=== PATIENT | female | born 1980 ===

== ENCOUNTER 2017-07-16 02:31 | Inpatient (IN) | payer OTHER ==
[~2017-07-16 02:31] MED LIST: Gadodiamide 287 MG/ML VIAL (15ML) IV ONE
[2017-07-16] MEDS ORDERED: Sodium Chloride 0.9% 1,000 ML IV ONE (02:59)
[2017-07-16] MEDS ORDERED: Morphine 4 MG/ML VIAL IV ONE (03:05)
[2017-07-16] MEDS ORDERED: HYDROmorphone 1 mg/ml ISec IVP STA (03:12)
--- NOTE | 2017-07-16 03:14 | C.PDOC ---
History Of Present Illness <Ade Rousseau - Last Filed: 07/16/17 06:22> <Amina Grider - Last Filed: 07/16/17 06:54> 36 year old female is brought to the ED by EMS for evaluation of several episodes of vomiting, abdominal discomfort since yesterday. As per , patient was very weak, fell at home while trying to walk to the bathroom and hit her right shoulder [employer]. Spouse is unsure of syncope or seizure activity at that time and denies observing pt hitting head on dresser. On arrival to the ED , patient was observed having a grand mal seizure, denies any prior history of seizures. Pt just arrived from [place] 1 week ago (Amnia Grider ) <Ade Rousseau - Last Filed: 07/16/17 06:22> History Per: Patient, Family History/Exam Limitations: no limitations Onset/Duration Of Symptoms: Hrs Current Symptoms Are (Timing): Still Present Location Of Pain/Discomfort: Diffuse Radiation Of Pain To:: None Quality Of Discomfort: "Pain" Associated Symptoms: denies: Fever Exacerbating Factors: None Alleviating Factors: None Recent travel outside of the [place]: No Additional History Per: Patient Abnormal Vaginal Bleeding: No <Amina Grider - Last Filed: 07/16/17 06:54> Chief Complaint (Nursing): Abdominal Pain Past Medical History Reviewed: Historical Data, Nursing Documentation, Vital Signs - Medical History PMH: Gastritis Denies: Diabetes, HTN Surgical History: No Surg Hx Family History: States: Unknown Family Hx - Social History Hx Alcohol Use: No Hx Substance Use: No <Amina Grider - Last Filed: 07/16/17 06:54> Vital Signs: Last Vital Signs Temp 97.9 F 07/16/17 06:00 Pulse 106 H 07/16/17 05:40 Resp 20 07/16/17 05:40 BP 112/72 07/16/17 05:40 Pulse Ox 98 07/16/17 06:49 Review Of Systems Constitutional: Negative for: Fever, Chills Cardiovascular: Negative for: Chest Pain Gastrointestinal: Positive for: Abdominal Pain Genitourinary: Negative for: Dysuria Skin: Negative for: Rash Neurological: Negative for: Weakness, Numbness, Headache <CheoAmina - Last Filed: 07/16/17 06:54> Physical Exam - Physical Exam Appears: Non-toxic, Other (Post ictal) Skin: Normal Color, Warm, Dry Head: Atraumatic, Normacephalic Eye(s): bilateral: Normal Inspection, PERRL, EOMI Nose: No Discharge Oral Mucosa: Moist, No Drooling Tongue: Other (Abrasion to the tip ) Lips: Abrasion (lower ) Neck: Normal ROM, No Midline Cervical Tenderness, Supple Chest: Symmetrical Cardiovascular: Rhythm Regular, No Murmur Respiratory: Normal Breath Sounds, No Rales, No Rhonchi, No Wheezing Gastrointestinal/Abdominal: Soft, No Tenderness, No Guarding, No Rebound Extremity: Normal ROM, Tenderness (right anterior shoulder over clavicular area) , Capillary Refill (< 2 seconds), Deformity, No Swelling Extremity: Bilateral: Normal Color And Temperature Pulses: Left Radial: Normal, Right Radial: Normal Neurological/Psych: Oriented x3, Normal Motor, Normal Sensation Gait: Steady <Amina Grider - Last Filed: 07/16/17 06:54> ED Course And Treatment - Laboratory Results Result Diagrams: 07/16/17 03:16 07/16/17 04:40 <Ade Rousseau - Last Filed: 07/16/17 06:22> - Laboratory Results Result Diagrams: 07/16/17 03:16 07/16/17 04:40 ECG: Interpreted By Me, Viewed By Me (and Dr Rousseau) ECG Rhythm: Sinus Tachycardia (nonspecific ST changes, no ectopy) O2 Sat by Pulse Oximetry: 98 (On RA) Pulse Ox Interpretation: Normal - Radiology CXR: Interpreted by Me, Viewed By Me CXR Interpretation: Yes: Infiltrates (right middle lobe) - Other Rad Right Shoulder X-Ray X-Ray: Interpreted by Me, Viewed By Me Interpretation: Anterior dislocation and glenoid fracture - CT Scan/US CT head Other Rad Studies (CT/US): Read By Radiologist, Radiology Report Reviewed CT/US Interpretation: EXAM: CT Head Without Intravenous Contrast. EXAM DATE/ TIME: 07/16/2017 2:59 AM. CLINICAL HISTORY: 36 years old, female; Pain; Other : Seizure. TECHNIQUE: Axial computed tomography images of the head/brain without intravenous contrast. All CT scans at. this facility use one or more dose reduction techniques, viz.: automated exposure control; ma/kV. adjustment per patient size (including targeted exams where dose is matched to indication; i.e. head);. or iterative reconstruction technique. Coronal and sagittal reformatted images were created and reviewed. COMPARISON: No relevant prior studies available. FINDINGS: LIMITATIONS: Mild to moderate streak/motion artifact. BRAIN: No definite acute abnormality identified. No acute hemorrhage seen within the brain. No. acute extra-axial fluid collections visualized. No evidence of significant mass effect within the brain. Normal bernard-white matter differentiation. VENTRICLES: No evidence of significant hydrocephalus. BONES/ JOINTS: No acute fractures or other acute bony abnormality noted. SOFT TISSUES : No acute abnormality of the visualized soft tissues is seen. SINUSES: Visualized paranasal sinuses appear clear.MASTOID AIR CELLS: Mastoid air cells appear clear. IMPRESSION: - No acute findings seen within the brain, allowing for motion artifact. - See above for remaining findings. Thank you for allowing us to participate in the care of your patient. Dictated and Authenticated by: Ashlie Soria MD. 07/16/2017 5:21 AM Eastern Time ([place] & [place]) Progress Note: Plan: - CT head. - EKG. - Labs. - Ativan 2 mg IVP. - Dilaudid 1 mg PO. - Morphine 2 mg IVP. - IV fluids. - Zofran 4 mg IVP. - Right shoulder X-Ray. - UA. Shoulder reduction performed by Dr Rousseau successfully- see procedure note. 05:43 - Dr Rousseau spoke with Dr. Barajas about the case for ICU eval / admission. 06:05 - spoke with Dr. Siu who accepted the patient under his service. Chest/ abd/ pelvis CT IV ordered, IV abx initiated <Amina Grider - Last Filed: 07/16/17 06:54> Medical Decision Making <Ade Rousseau - Last Filed: 07/16/17 06:22> <Amina Grider - Last Filed: 07/16/17 06:54> Medical Decision Making: Performed by Dr. Rousseau Films were reviewed and shown anterior shoulder dislocation and glenoid fracture. With 's consent patient was given 100 mg propofol. Using axial traction shoulder was reduced. Post reduction X-Ray showed good position, no complications during the process conscious sedation, shoulder was placed on immobilizer. (Amina Grider) Disposition - Disposition Disposition Time: 06:25 <Ade Rousseau - Last Filed: 07/16/17 06:22> <Amina Grider - Last Filed: 07/16/17 06:54> - Disposition Disposition: HOSPITALIZED Condition: SERIOUS - Clinical Impression Clinical Impression: Sepsis, Pneumonia, Seizures, Altered mental status, Shoulder dislocation <Ade Rousseau - Last Filed: 07/16/17 06:22> - PA / [employer]ER / Resident Statement MD/DO has reviewed & agrees with the documentation as recorded. - Scribe Statement The provider has reviewed the documentation as recorded by the Scribe <Amina Grider - Last Filed: 07/16/17 06:54> - Scribe Statement Baron Fletcher All medical record entries made by the Scribe were at my direction and personally dictated by me. I have reviewed the chart and agree that the record accurately reflects my personal performance of the history, physical exam, medical decision making, and the department course for this patient. I have also personally directed, reviewed, and agree with the discharge instructions and disposition. (Amina Grider) Proc Sedation INTRA-PROCEDURE <Ade Rousseau - Last Filed: 07/16/17 06:22> <Amina Grider - Last Filed: 07/16/17 06:54> - Medications Medications Given: Azithromycin 500 mg/ Sodium (Chloride) 250 mls @ 250 mls/hr IVPB DAILY TIMA PRN Reason: Protocol Ceftriaxone Sodium 2 gm/ (Sodium Chloride) 100 mls @ 100 mls/hr IVPB DAILY TIMA PRN Reason: Protocol Discontinued Medications Calcium Chloride (Calcium Chloride) 1,000 mg IV ONCE ONE Stop: 07/16/17 04:28 Last Admin: 07/16/17 05:14 Dose: 1,000 mg eMAR Start Stop Document 07/16/17 05:14 SONDRA (Rec: 07/16/17 05:14 SONDRA [id number]) Intravenous Solution Start Date 07/16/17 Start Time 05:13 End Date 07/16/17 End time 05:15 Total Infusion Time 2 Dextrose (Dextrose 50% Inj) 50 ml IVP STAT STA Stop: 07/16/17 04:31 Last Admin: 07/16/17 05:26 Dose: 50 ml IVP Administration Document 07/16/17 05:26 SONDRA (Rec: 07/16/17 05:27 SONDRA [id number]) Charges for Administration # of IVP Administrations 1 Hydromorphone HCl (Dilaudid) 1 mg IVP STAT STA Stop: 07/16/17 03:13 Last Admin: 07/16/17 03:15 Dose: 1 mg MAR Pain Assessment Document 07/16/17 03:15 SONDRA (Rec: 07/16/17 04:34 SONDRA [id number]) Pain Reassessment Is this a pain reassessment? Yes Sleep Is patient sleeping during reassessment? No Presence of Pain Presence of Pain Yes Pain Scale Used Pain Scale Used Numeric Location Left, Right or Bilateral Right Pain Location Body Site Shoulder Description Description Constant Pain Behavior Screaming IVP Administration Document 07/16/17 03:15 SONDRA (Rec: 07/16/17 04:34 SONDRA [id number]) Charges for Administration # of IVP Administrations 1 Sodium Chloride (Sodium Chloride 0.9%) 1,000 mls @ 1,000 mls/hr IV .Q1H ONE Stop: 07/16/17 03:58 Last Admin: 07/16/17 03:03 Dose: 1,000 mls/hr eMAR Start Stop Document 07/16/17 03:03 BAL (Rec: 07/16/17 03:03 BAL [id number]) Intravenous Solution Start Date 07/16/17 Start Time 03:03 End Date 07/16/17 End time 04:03 Total Infusion Time 60 Sodium Chloride (Sodium Chloride 0.9%) 500 mls @ 999 mls/hr IV .Q31M STA Stop: 07/16/17 04:56 Last Admin: 07/16/17 05:13 Dose: 999 mls/hr eMAR Start Stop Document 07/16/17 05:13 SONDRA (Rec: 07/16/17 05:14 SONDRA [id number]) Intravenous Solution Start Date 07/16/17 Start Time 05:13 End Date 07/16/17 End time 05:45 Total Infusion Time 32 Cefoxitin Sodium 2 gm/ Sodium (Chloride) 150 mls @ 150 mls/hr IV STAT STA PRN Reason: Protocol Stop: 07/16/17 06:34 Sodium Chloride (Sodium Chloride 0.9%) 500 mls @ 999 mls/hr IV .Q31M STA Stop: 07/16/17 06:11 Last Admin: 07/16/17 05:49 Dose: 999 mls/hr eMAR Start Stop Document 07/16/17 05:49 SONDRA (Rec: 07/16/17 05:49 SONDRA [id number]) Intravenous Solution Start Date 07/16/17 Start Time 05:49 End Date 07/16/17 End time 06:20 Total Infusion Time 31 Insulin Human Regular (Novolin R) 10 unit IV ONCE ONE Stop: 07/16/17 04:30 Last Admin: 07/16/17 05:24 Dose: 10 unit eMAR Start Stop Document 07/16/17 05:24 SONDRA (Rec: 07/16/17 05:26 SONDRA [id number]) Intravenous Solution Start Date 07/16/17 Start Time 05:10 End Date 07/16/17 End time 05:10 Total Infusion Time 0 Lorazepam (Ativan) 2 mg IVP ONCE ONE Stop: 07/16/17 03:01 Last Admin: 07/16/17 02:50 Dose: 2 mg IVP Administration Document 07/16/17 02:50 BAL (Rec: 07/16/17 03:04 BAL [id number]) Charges for Administration # of IVP Administrations 1 Morphine Sulfate (Morphine) 2 mg IV ONCE ONE Stop: 07/16/17 03:06 Last Admin: 07/16/17 02:55 Dose: 2 mg eMAR Start Stop Document 07/16/17 02:55 SONDRA (Rec: 07/16/17 04:35 SONDRA [id number]) Intravenous Solution Start Date 07/16/17 Start Time 02:55 MAR Pain Assessment Document 07/16/17 02:55 SONDRA (Rec: 07/16/17 04:35 SONDRA [id number]) Pain Reassessment Is this a pain reassessment? No Sleep Is patient sleeping during reassessment? No Presence of Pain Presence of Pain Yes Pain Scale Used Pain Scale Used Numeric Location Left, Right or Bilateral Right Pain Location Body Site Shoulder Description Description Constant Intensity of Pain at present 10 Pain Behavior Screaming Ondansetron HCl (Zofran Inj) 4 mg IVP ONCE ONE Stop: 07/16/17 03:01 Last Admin: 07/16/17 03:04 Dose: 4 mg IVP Administration Document 07/16/17 03:04 BAL (Rec: 07/16/17 03:04 BAL [id number]) Charges for Administration # of IVP Administrations 1 Propofol (Diprivan) 100 mg IVP ONCE ONE Stop: 07/16/17 03:48 Last Admin: 07/16/17 03:47 Dose: 100 mg IVP Administration Document 07/16/17 03:47 SONDRA (Rec: 07/16/17 05:13 SONDRA [id number]) Charges for Administration # of IVP Administrations 2 Sodium Bicarbonate (Sodium Bicarbonate (8.4%) 50 Meq Syringe) 50 meq IVP ONCE ONE Stop: 07/16/17 04:28 Last Admin: 07/16/17 05:23 Dose: 50 meq IVP Administration Document 07/16/17 05:23 SONDRA (Rec: 07/16/17 05:23 SONDRA [id number]) Charges for Administration # of IVP Administrations 1 Proc Sedation PRE-PROCEDURE <Ade Rousseau - Last Filed: 07/16/17 06:22> - Pre-Anesthesia Past Medical History: Medications Reviewed, Allergies Reviewed, Record Review Previous Surgies: Reviewed Family History/Social History: Reviewed - Physical Exam/Review of Systems Vital Signs Reviewed: Yes Cardiovascular: Regular Rate and Rhythm, Normal S1, S2. denies: Murmurs Respiratory/Chest: Clear to Auscultation, Good Air Exchange. denies: Respiratory Distress, Accessory Muscle Use Neurological: GCS=15, CN II-XII Intact, Speech Normal Abdomen: Normal Bowel Sounds. denies: Tenderness, Distention, Peritoneal Signs Mental Status: Alert and Oriented X 3 - Pre-Procedure Airway Assessment History of difficult intubation or surgical airway(i.e trach: No Inability to extend neck:: No Mouth opening less than two finger breadth:: No Diagnosis of sleep apnea:: No Less than three finger breadth to hyoid bone:: No ASA Criteria: 1 - Healthy, normal. 2 - Mild systemic disease (No functional limitations, mildline obesity, DM withot complications, Hypertention). 3 - Severe systemic disease (Some functional limitation, stable angina, morbid obesity, controlled COPD/Asthma/CHF). 4 - Sever systemic disease constant threat to life (Unstable angina, active symptoms of COPD/Asthma, CHF/ Hypertension. 5 - Moribund <Amina Grider - Last Filed: 07/16/17 06:54> - Pre-Anesthesia Chief Complaint: Abdominal Pain Proc Sedation POST-PROCEDURE <Ade Rousseau - Last Filed: 07/16/17 06:22> - Discharge Checklist Written MD order for Discharge: Yes Vital signs assessed and are consistent with pre-procedure r: Yes Ambulates to pre-procedural level: Yes Alert and oriented to pre-procedural level: Yes Responsible adult escort present: Yes DISCHARGE INSTRUCTIONS GIVEN:: Yes <Amina Grider - Last Filed: 07/16/17 06:54> - Post Procedure Physician Note Post Procedure Note: Films were reviewed and shown anterior shoulder dislocation and glenoid fracture. With 's consent patient was given 100 mg propofol. Using axial traction shoulder was reduced. Post reduction X-Ray showed good position, no complications during the process conscious sedation, shoulder was placed on immobilizer. (Amina Grider)
[2017-07-16 03:16] LABS: HCG,QUALITATIVE URINE NEGATIVE (NEGATIVE)
[2017-07-16 03:17] LABS: EOS # 0.1 K/uL (0.0-0.7); HEMOGLOBIN 13.7 g/dL (11.0-16.0)
[2017-07-16 03:19] LABS: BASO # 0.1 K/uL (0.0-0.2); BASO % 0.3 % (0.0-2.0); EOS % 0.3 % (0.0-4.0); LYMPH % 22.5 % (20.0-40.0); MEAN CELL VOLUME 90.5 fL (81.0-99.0); MEAN CORPUSCULAR HEMOGLOBIN 28.9 pg (27.0-31.0); MEAN PLATELET VOLUME 8.9 fL (7.2-11.7); MONO % 4.5 % (0.0-10.0); NEUT % 72.4 % (50.0-75.0); RBC 4.74 Mil/uL (3.80-5.20); WHITE BLOOD COUNT 22.1 K/uL (4.8-10.8)
[2017-07-16 03:20] LABS: GRANULAR CAST 7 /lpf (0-1); URINE BACTERIA RARE (<OCC); URINE BILIRUBIN NEGATIVE (NEGATIVE); URINE BLOOD 2+ (NEGATIVE); URINE CLARITY Clear (Clear); URINE COLOR Straw (YELLOW); URINE GLUCOSE (UA) 1+ mg/dL (Normal); URINE LEUKOCYTE ESTERASE NEG Leu/uL (Negative); URINE PROTEIN 2+ mg/dL (NEGATIVE); URINE UROBILINOGEN NORMAL mg/dL (0.2-1.0)
[2017-07-16 03:37] LABS: BARBITURATES, UR NEGATIVE (NEGATIVE); BENZODIAZEPINES, UR NEGATIVE (NEGATIVE); OPIATES, UR NEGATIVE (NEGATIVE); PHENCYCLIDINE, UR NEGATIVE (NEGATIVE)
[2017-07-16] MEDS ORDERED: Propofol 10 mg/ml Inj (20 ML) ONE (03:45)
[2017-07-16] MEDS ORDERED: Propofol 10 mg/ml Inj (20 ML) IVP ONE (03:47)
[2017-07-16 04:12] LABS: ALB/GLOB RATIO 1.1 (1.0-2.1); ALBUMIN 4.9 g/dL (3.5-5.0); ALT/SGPT 43 U/L (9-52); AST/SGOT 47 U/L (14-36); BLOOD UREA NITROGEN 8 mg/dL (7-17); CALCIUM 10.2 mg/dl (8.6-10.4); GFR AFRICAN-AMERICAN > 60; GFR NON-AFRICAN AMERICAN > 60
[2017-07-16] MEDS ORDERED: Sodium Chloride 0.9% 1,000 ML IV STA ×2 (04:26→05:41)
[2017-07-16] MEDS ORDERED: Calcium Chloride 1000 mg/10 ml Syringe IV ONE (04:27)
[2017-07-16] MEDS ORDERED: Sodium Bicarbonate (8.4%) 50 Meq Syringe IVP ONE (04:27)
[2017-07-16] MEDS ORDERED: (Novolin R) Insulin Human Regular 100 units/ml vial IV ONE (04:29)
[2017-07-16] MEDS ORDERED: Dextrose 50% SYRINGE Inj (50 ml) IVP STA (04:30)
[2017-07-16 05:01] LABS: ABG ALLEN TEST POS; ARTERIAL BLOOD GAS HCO3 14.3 mmol/L (21-28); ARTERIAL BLOOD GAS O2 SAT 99.5 % (95-98); ARTERIAL BLOOD GAS PCO2 33 mm/Hg (35-45); ARTERIAL BLOOD GAS PH 7.21 (7.35-7.45); ARTERIAL BLOOD GAS PO2 277 mm/Hg (80-100); ARTERIAL BLOOD GAS TCO2 14.2 mmol/L (22-28)
[2017-07-16] MEDS ORDERED: Dextrose 50% VIAL Inj (50 ml) IV ONE (05:01)
--- NOTE | 2017-07-16 05:21 | CT ---
EXAM: CT Head Without Intravenous Contrast EXAM DATE/TIME: 07/16/2017 2:59 AM CLINICAL HISTORY: 36 years old, female; Pain; Other: Seizure TECHNIQUE: Axial computed tomography images of the head/brain without intravenous contrast. All CT scans at this facility use one or more dose reduction techniques, viz.: automated exposure control; ma/kV adjustment per patient size (including targeted exams where dose is matched to indication; i.e. head); or iterative reconstruction technique. Coronal and sagittal reformatted images were created and reviewed. COMPARISON: No relevant prior studies available. FINDINGS: LIMITATIONS: Mild to moderate streak/motion artifact. BRAIN: No definite acute abnormality identified. No acute hemorrhage seen within the brain. No acute extra-axial fluid collections visualized. No evidence of significant mass effect within the brain. Normal bernard-white matter differentiation. VENTRICLES: No evidence of significant hydrocephalus. BONES/JOINTS: No acute fractures or other acute bony abnormality noted. SOFT TISSUES: No acute abnormality of the visualized soft tissues is seen. SINUSES: Visualized paranasal sinuses appear clear. MASTOID AIR CELLS: Mastoid air cells appear clear. IMPRESSION: - No acute findings seen within the brain, allowing for motion artifact. - See above for remaining findings.
[2017-07-16] MEDS ORDERED: cefOXitin IV 2 gm in Saline 2 GM in Sodium Chloride 0.9% 100 ML IV STA (05:35)
--- NOTE | 2017-07-16 06:43 | CP.PCM.CON ---
History of Present Illness - History of Present Illness History of Present Illness: 36yo F. No significant PMHx, p/w 2 days of n/v. While at home became weak and fell, hit right shoulder and dislocated. In ED had a generalized seizure, given Ativan x 1. Shoulder was reduced in ED. Patient conscious and admitted to ICU for further management. Review of Systems - Review of Systems All systems: reviewed and no additional remarkable complaints except - Gastrointestinal Gastrointestinal: Nausea - Musculoskeletal Musculoskeletal: Other (right shoulder pain) Past Patient History - Past Social History Smoking Status: Never Smoked - CARDIAC Hx Hypertension: No - GASTROINTESTINAL Hx Gastritis: Yes - PSYCHIATRIC Hx Substance Use: No Meds Allergies/Adverse Reactions: Allergies Allergy/AdvReac Type Severity Reaction Status Date / Time No Known Allergies Allergy Verified 07/16/17 02:59 - Medications Medications: Current Medications Azithromycin 500 mg/ Sodium (Chloride) 250 mls @ 250 mls/hr IVPB DAILY TIMA PRN Reason: Protocol Ceftriaxone Sodium 2 gm/ (Sodium Chloride) 100 mls @ 100 mls/hr IVPB DAILY TIMA PRN Reason: Protocol Physical Exam - Head Exam Head Exam: ATRAUMATIC (right shoulder pain), NORMAL INSPECTION, NORMOCEPHALIC - Eye Exam Eye Exam: EOMI, Normal appearance, PERRL - ENT Exam ENT Exam: Mucous Membranes Moist, Normal Exam - Respiratory Exam Respiratory Exam: Clear to Auscultation Bilateral, NORMAL BREATHING PATTERN - Cardiovascular Exam Cardiovascular Exam: REGULAR RHYTHM - GI/Abdominal Exam GI & Abdominal Exam: Normal Bowel Sounds Results - Vital Signs Recent Vital Signs: Last Vital Signs Temp 97.6 F 07/16/17 03:45 Pulse 106 H 07/16/17 05:40 Resp 20 07/16/17 05:40 BP 112/72 07/16/17 05:40 Pulse Ox 98 07/16/17 06:39 - Labs Result Diagrams: 07/16/17 03:16 07/16/17 04:40 Labs: Laboratory Results - last 24 hr 07/16/17 07/16/17 07/16/17 02:59 03:16 03:16 WBC 22.1 H RBC 4.74 Hgb 13.7 Hct 42.9 MCV 90.5 MCH 28.9 MCHC 32.0 L RDW 15.0 H Plt Count 326 MPV 8.9 Neut % (Auto) 72.4 Lymph % (Auto) 22.5 [place] % (Auto) 4.5 Eos % (Auto) 0.3 Baso % (Auto) 0.3 Neut # (Auto) 16.0 H Lymph # (Auto) 5.0 H [place] # (Auto) 1.0 H Eos # (Auto) 0.1 Baso # (Auto) 0.1 Puncture Site pCO2 pO2 HCO3 ABG pH ABG Total CO2 ABG O2 Saturation ABG Base Excess ABG Hemoglobin ABG Carboxyhemoglobin POC ABG HHb (Measured) ABG Methemoglobin Nathan Test A-a O2 Difference Respiratory Index Hgb O2 Saturation Liter Flow FiO2 Sodium 153 H Potassium 7.1 H* Chloride 113 H Carbon Dioxide 17 L Anion Gap 29 H BUN 8 Creatinine 0.9 Est GFR ( Amer) > 60 Est GFR (Non-Af Amer) > 60 Random Glucose 260 H Lactic Acid Calcium 10.2 Magnesium Total Bilirubin 0.7 AST 47 H ALT 43 Alkaline Phosphatase 125 Total Protein 9.2 H Albumin 4.9 Globulin 4.3 H Albumin/Globulin Ratio 1.1 Urine Color Straw Urine Clarity Clear Urine pH 5.0 Ur Specific [place] 1.015 Urine Protein 2+ H Urine Glucose (UA) 1+ Urine Ketones Negative Urine Blood 2+ H Urine Nitrate Negative Urine Bilirubin Negative Urine Urobilinogen Normal Ur Leukocyte Esterase Neg Urine WBC (Auto) 1 Urine RBC (Auto) 15 H Urine Bacteria Rare Granular Casts (Auto) 7 Urine HCG, Qual Negative Urine Opiates Screen Urine Methadone Screen Ur Barbiturates Screen Ur Phencyclidine Scrn Ur Amphetamines Screen U Benzodiazepines Scrn U Oth Cocaine Metabols U Cannabinoids Screen Alcohol, Quantitative < 10 07/16/17 07/16/17 07/16/17 03:17 04:40 04:40 WBC RBC Hgb Hct MCV MCH MCHC RDW Plt Count MPV Neut % (Auto) Lymph % (Auto) [place] % (Auto) Eos % (Auto) Baso % (Auto) Neut # (Auto) Lymph # (Auto) [place] # (Auto) Eos # (Auto) Baso # (Auto) Puncture Site pCO2 pO2 HCO3 ABG pH ABG Total CO2 ABG O2 Saturation ABG Base Excess ABG Hemoglobin ABG Carboxyhemoglobin POC ABG HHb (Measured) ABG Methemoglobin Nathan Test A-a O2 Difference Respiratory Index Hgb O2 Saturation Liter Flow FiO2 Sodium Potassium 3.5 L Chloride Carbon Dioxide Anion Gap BUN Creatinine Est GFR ( Amer) Est GFR (Non-Af Amer) Random Glucose Lactic Acid 4.1 H* Calcium Magnesium 2.3 Total Bilirubin AST ALT Alkaline Phosphatase Total Protein Albumin Globulin Albumin/Globulin Ratio Urine Color Urine Clarity Urine pH Ur Specific [place] Urine Protein Urine Glucose (UA) Urine Ketones Urine Blood Urine Nitrate Urine Bilirubin Urine Urobilinogen Ur Leukocyte Esterase Urine WBC (Auto) Urine RBC (Auto) Urine Bacteria Granular Casts (Auto) Urine HCG, Qual Urine Opiates Screen Negative Urine Methadone Screen No result Ur Barbiturates Screen Negative Ur Phencyclidine Scrn Negative Ur Amphetamines Screen Negative U Benzodiazepines Scrn Negative U Oth Cocaine Metabols Negative U Cannabinoids Screen Negative Alcohol, Quantitative 07/16/17 04:50 WBC RBC Hgb Hct MCV MCH MCHC RDW Plt Count MPV Neut % (Auto) Lymph % (Auto) [place] % (Auto) Eos % (Auto) Baso % (Auto) Neut # (Auto) Lymph # (Auto) [place] # (Auto) Eos # (Auto) Baso # (Auto) Puncture Site Lr pCO2 33 L pO2 277 H HCO3 14.3 L ABG pH 7.21 L ABG Total CO2 14.2 L ABG O2 Saturation 99.5 H ABG Base Excess -13.6 L ABG Hemoglobin 10.0 L ABG Carboxyhemoglobin 1.1 POC ABG HHb (Measured) 0.5 ABG Methemoglobin 0.8 Nathan Test Pos A-a O2 Difference 395.0 Respiratory Index 1.4 Hgb O2 Saturation 97.6 Liter Flow 15.0 FiO2 100.0 Sodium Potassium Chloride Carbon Dioxide Anion Gap BUN Creatinine Est GFR ( Amer) Est GFR (Non-Af Amer) Random Glucose Lactic Acid Calcium Magnesium Total Bilirubin AST ALT Alkaline Phosphatase Total Protein Albumin Globulin Albumin/Globulin Ratio Urine Color Urine Clarity Urine pH Ur Specific [place] Urine Protein Urine Glucose (UA) Urine Ketones Urine Blood Urine Nitrate Urine Bilirubin Urine Urobilinogen Ur Leukocyte Esterase Urine WBC (Auto) Urine RBC (Auto) Urine Bacteria Granular Casts (Auto) Urine HCG, Qual Urine Opiates Screen Urine Methadone Screen Ur Barbiturates Screen Ur Phencyclidine Scrn Ur Amphetamines Screen U Benzodiazepines Scrn U Oth Cocaine Metabols U Cannabinoids Screen Alcohol, Quantitative Assessment & Plan (1) Sepsis Assessment and Plan: 36yo F. No significant PMHx, p/w 2 days of n/v, sepsis, traumatic shoulder injury and subsequent seizure activity. Neuro: alert and following commands. Seizure activity secondary to metabolic derangements with sepsis, no need for anti seizure meds currently, will monitor closely. Pulm: RLL pneumonia, abx, duonebs, fluids. CV: hemodynamically stable. Renal: HAGMA, from lactic acidosis, secondary to sepsis. Hypovolemic hyponatremia, q4h BMP. 3L boluses, maintenance NS@150. GI: regular diet ID: severe sepsis, community acquired pneumonia, ceftriaxone and azithromycin. Must consider other etiologies with recent history living in [place]. DVT proph - lovenox GI proph - not currently indicated Full code Critical Care time 35 minutes Status: Acute
--- NOTE | 2017-07-16 06:58 | CP.PCM.HP ---
<RjSuri L. - Last Filed: 07/16/17 07:04> History of Present Illness - History of Present Illness History of Present Illness: CC: vomiting, shaking, shoulder injury HPI: Patient is a 36 year old female with no significant past medical history who moved to the from [facility] one week ago and who was brought in today for vomiting and shaking. Patient had dinner with her and then started having abdominal pain which she thought was gas pain. Patient took a medication for gas and about 30 minutes later had 3 episodes of non bloody vomiting. Patient was feeling very weak and tired. Patient fell onto a table (dislocating her right shoulder) and noticed some blood from the patient's mouth. At that time patient's tried to open her mouth but her jaw was locked close. The patient started shaking for about 3 minutes. 911 was called and patient brought to [facility] As per nurse, patient was screaming in the ER in pain due to her right shoulder dislocation. After a few minutes of screaming, patient's eyes became fixed and her lower extremities became rigid and she started convulsing for about 1 minute. Patient given Ativan and then sedated to reduce her shoulder. On exam patient is lethargic. Patient denies any recent illnesses. PMHx: denies Psurg: c section in 2013 Famhx: denies Socialhx: denies tobacco, alcohol, drugs. Patient moved to [facility] one week ago. Allergies: NKDA Home meds: none Present on Admission - Present on Admission Any Indicators Present on Admission: No History of DVT/PE: No History of Uncontrolled Diabetes: No Urinary Catheter: No Decubitus Ulcer Present: No Review of Systems - Review of Systems Systems not reviewed;Unavailable: Language Barrier - Gastrointestinal Gastrointestinal: Abdominal Pain, Nausea, Vomiting Past Patient History - Past Social History Smoking Status: Never Smoked - CARDIAC Hx Hypertension: No - GASTROINTESTINAL Hx Gastritis: Yes - PSYCHIATRIC Hx Substance Use: No Meds Allergies/Adverse Reactions: Allergies Allergy/AdvReac Type Severity Reaction Status Date / Time No Known Allergies Allergy Verified 07/16/17 02:59 Physical Exam - Constitutional Appears: Toxic, No Acute Distress - Head Exam Head Exam: ATRAUMATIC, NORMAL INSPECTION, NORMOCEPHALIC - Eye Exam Eye Exam: EOMI, Normal appearance - ENT Exam ENT Exam: Mucous Membranes Moist - Respiratory Exam Respiratory Exam: Clear to Auscultation Bilateral, NORMAL BREATHING PATTERN - Cardiovascular Exam Cardiovascular Exam: Tachycardia, REGULAR RHYTHM, +S1, +S2 - GI/Abdominal Exam GI & Abdominal Exam: Normal Bowel Sounds, Soft. absent: Tenderness - Extremities Exam Extremities exam: Positive for: normal inspection. Negative for: pedal edema Additional comments: right arm in sling - Neurological Exam Neurological exam: Alert, Oriented x3 - Psychiatric Exam Psychiatric exam: Normal Affect, Normal Mood - Skin Skin Exam: Intact, Normal Color, Warm Results - Vital Signs Recent Vital Signs: Last Vital Signs Temp 97.9 F 07/16/17 06:00 Pulse 106 H 07/16/17 05:40 Resp 20 07/16/17 05:40 BP 112/72 07/16/17 05:40 Pulse Ox 98 07/16/17 06:53 - Labs Result Diagrams: 07/16/17 03:16 07/16/17 04:40 Labs: Laboratory Results - last 24 hr 07/16/17 07/16/17 07/16/17 02:59 03:16 03:16 WBC 22.1 H RBC 4.74 Hgb 13.7 Hct 42.9 MCV 90.5 MCH 28.9 MCHC 32.0 L RDW 15.0 H Plt Count 326 MPV 8.9 Neut % (Auto) 72.4 Lymph % (Auto) 22.5 [place] % (Auto) 4.5 Eos % (Auto) 0.3 Baso % (Auto) 0.3 Neut # (Auto) 16.0 H Lymph # (Auto) 5.0 H [place] # (Auto) 1.0 H Eos # (Auto) 0.1 Baso # (Auto) 0.1 Puncture Site pCO2 pO2 HCO3 ABG pH ABG Total CO2 ABG O2 Saturation ABG Base Excess ABG Hemoglobin ABG Carboxyhemoglobin POC ABG HHb (Measured) ABG Methemoglobin Nathan Test A-a O2 Difference Respiratory Index Hgb O2 Saturation Liter Flow FiO2 Sodium 153 H Potassium 7.1 H* Chloride 113 H Carbon Dioxide 17 L Anion Gap 29 H BUN 8 Creatinine 0.9 Est GFR ( Amer) > 60 Est GFR (Non-Af Amer) > 60 Random Glucose 260 H Lactic Acid Calcium 10.2 Magnesium Total Bilirubin 0.7 AST 47 H ALT 43 Alkaline Phosphatase 125 Total Protein 9.2 H Albumin 4.9 Globulin 4.3 H Albumin/Globulin Ratio 1.1 Urine Color Straw Urine Clarity Clear Urine pH 5.0 Ur Specific [place] 1.015 Urine Protein 2+ H Urine Glucose (UA) 1+ Urine Ketones Negative Urine Blood 2+ H Urine Nitrate Negative Urine Bilirubin Negative Urine Urobilinogen Normal Ur Leukocyte Esterase Neg Urine WBC (Auto) 1 Urine RBC (Auto) 15 H Urine Bacteria Rare Granular Casts (Auto) 7 Urine HCG, Qual Negative Urine Opiates Screen Urine Methadone Screen Ur Barbiturates Screen Ur Phencyclidine Scrn Ur Amphetamines Screen U Benzodiazepines Scrn U Oth Cocaine Metabols U Cannabinoids Screen Alcohol, Quantitative < 10 07/16/17 07/16/17 07/16/17 03:17 04:40 04:40 WBC RBC Hgb Hct MCV MCH MCHC RDW Plt Count MPV Neut % (Auto) Lymph % (Auto) [place] % (Auto) Eos % (Auto) Baso % (Auto) Neut # (Auto) Lymph # (Auto) [place] # (Auto) Eos # (Auto) Baso # (Auto) Puncture Site pCO2 pO2 HCO3 ABG pH ABG Total CO2 ABG O2 Saturation ABG Base Excess ABG Hemoglobin ABG Carboxyhemoglobin POC ABG HHb (Measured) ABG Methemoglobin Nathan Test A-a O2 Difference Respiratory Index Hgb O2 Saturation Liter Flow FiO2 Sodium Potassium 3.5 L Chloride Carbon Dioxide Anion Gap BUN Creatinine Est GFR ( Amer) Est GFR (Non-Af Amer) Random Glucose Lactic Acid 4.1 H* Calcium Magnesium 2.3 Total Bilirubin AST ALT Alkaline Phosphatase Total Protein Albumin Globulin Albumin/Globulin Ratio Urine Color Urine Clarity Urine pH Ur Specific [place] Urine Protein Urine Glucose (UA) Urine Ketones Urine Blood Urine Nitrate Urine Bilirubin Urine Urobilinogen Ur Leukocyte Esterase Urine WBC (Auto) Urine RBC (Auto) Urine Bacteria Granular Casts (Auto) Urine HCG, Qual Urine Opiates Screen Negative Urine Methadone Screen No result Ur Barbiturates Screen Negative Ur Phencyclidine Scrn Negative Ur Amphetamines Screen Negative U Benzodiazepines Scrn Negative U Oth Cocaine Metabols Negative U Cannabinoids Screen Negative Alcohol, Quantitative 07/16/17 04:50 WBC RBC Hgb Hct MCV MCH MCHC RDW Plt Count MPV Neut % (Auto) Lymph % (Auto) [place] % (Auto) Eos % (Auto) Baso % (Auto) Neut # (Auto) Lymph # (Auto) [place] # (Auto) Eos # (Auto) Baso # (Auto) Puncture Site Lr pCO2 33 L pO2 277 H HCO3 14.3 L ABG pH 7.21 L ABG Total CO2 14.2 L ABG O2 Saturation 99.5 H ABG Base Excess -13.6 L ABG Hemoglobin 10.0 L ABG Carboxyhemoglobin 1.1 POC ABG HHb (Measured) 0.5 ABG Methemoglobin 0.8 Nathan Test Pos A-a O2 Difference 395.0 Respiratory Index 1.4 Hgb O2 Saturation 97.6 Liter Flow 15.0 FiO2 100.0 Sodium Potassium Chloride Carbon Dioxide Anion Gap BUN Creatinine Est GFR ( Amer) Est GFR (Non-Af Amer) Random Glucose Lactic Acid Calcium Magnesium Total Bilirubin AST ALT Alkaline Phosphatase Total Protein Albumin Globulin Albumin/Globulin Ratio Urine Color Urine Clarity Urine pH Ur Specific [place] Urine Protein Urine Glucose (UA) Urine Ketones Urine Blood Urine Nitrate Urine Bilirubin Urine Urobilinogen Ur Leukocyte Esterase Urine WBC (Auto) Urine RBC (Auto) Urine Bacteria Granular Casts (Auto) Urine HCG, Qual Urine Opiates Screen Urine Methadone Screen Ur Barbiturates Screen Ur Phencyclidine Scrn Ur Amphetamines Screen U Benzodiazepines Scrn U Oth Cocaine Metabols U Cannabinoids Screen Alcohol, Quantitative Assessment & Plan - Assessment and Plan (Free Text) Assessment: Sepsis admit to ICU 2/2 pneumonia Lactic acid: 4.1 f/u blood cultures Azithromycin 500mg daily Ceftriaxone 2mg daily s/p Seizure secondary to metabolic changes monitor closely given Ativan 2mg ivp in ED CT head: no acute findings seen f/u MRI brain w and w/out contrast f/u EEG Neuro consulted, Dr. Hilton, help appreciated RLL pneumonia f/u cxray and chest CT Azithromycin 500mg daily Ceftriaxone 2mg daily R Shoulder Dislocation reduced in ED f/u shoulder xray Prophylaxis Protonix 40mg ivp daily Lovenox 40mg sc daily NS @ 150cc/hr <Roberth Siu P - Last Filed: 07/16/17 10:52> Results - Vital Signs Recent Vital Signs: Last Vital Signs Temp 97.9 F 07/16/17 06:00 Pulse 96 H 07/16/17 08:45 Resp 16 07/16/17 08:45 BP 112/72 07/16/17 05:40 Pulse Ox 99 07/16/17 08:45 - Labs Result Diagrams: 07/16/17 03:16 07/16/17 08:09 Labs: Laboratory Results - last 24 hr 07/16/17 07/16/17 07/16/17 02:59 03:16 03:16 WBC 22.1 H RBC 4.74 Hgb 13.7 Hct 42.9 MCV 90.5 MCH 28.9 MCHC 32.0 L RDW 15.0 H Plt Count 326 MPV 8.9 Neut % (Auto) 72.4 Lymph % (Auto) 22.5 [place] % (Auto) 4.5 Eos % (Auto) 0.3 Baso % (Auto) 0.3 Neut # (Auto) 16.0 H Lymph # (Auto) 5.0 H [place] # (Auto) 1.0 H Eos # (Auto) 0.1 Baso # (Auto) 0.1 Puncture Site pCO2 pO2 HCO3 ABG pH ABG Total CO2 ABG O2 Saturation ABG Base Excess ABG Hemoglobin ABG Carboxyhemoglobin POC ABG HHb (Measured) ABG Methemoglobin Nathan Test A-a O2 Difference Respiratory Index Hgb O2 Saturation Liter Flow FiO2 Sodium 153 H Potassium 7.1 H* Chloride 113 H Carbon Dioxide 17 L Anion Gap 29 H BUN 8 Creatinine 0.9 Est GFR ( Amer) > 60 Est GFR (Non-Af Amer) > 60 Random Glucose 260 H Serum Osmolality Lactic Acid Calcium 10.2 Magnesium Total Bilirubin 0.7 AST 47 H ALT 43 Alkaline Phosphatase 125 Total Protein 9.2 H Albumin 4.9 Globulin 4.3 H Albumin/Globulin Ratio 1.1 Urine Color Straw Urine Clarity Clear Urine pH 5.0 Ur Specific [place] 1.015 Urine Protein 2+ H Urine Glucose (UA) 1+ Urine Ketones Negative Urine Blood 2+ H Urine Nitrate Negative Urine Bilirubin Negative Urine Urobilinogen Normal Ur Leukocyte Esterase Neg Urine WBC (Auto) 1 Urine RBC (Auto) 15 H Urine Bacteria Rare Granular Casts (Auto) 7 Urine Osmolality Ur Random Creatinine Ur Random Sodium Urine HCG, Qual Negative Salicylates Urine Opiates Screen Urine Methadone Screen Ur Barbiturates Screen Ur Phencyclidine Scrn Ur Amphetamines Screen U Benzodiazepines Scrn U Oth Cocaine Metabols U Cannabinoids Screen Alcohol, Quantitative < 10 07/16/17 07/16/17 07/16/17 03:17 04:40 04:40 WBC RBC Hgb Hct MCV MCH MCHC RDW Plt Count MPV Neut % (Auto) Lymph % (Auto) [place] % (Auto) Eos % (Auto) Baso % (Auto) Neut # (Auto) Lymph # (Auto) [place] # (Auto) Eos # (Auto) Baso # (Auto) Puncture Site pCO2 pO2 HCO3 ABG pH ABG Total CO2 ABG O2 Saturation ABG Base Excess ABG Hemoglobin ABG Carboxyhemoglobin POC ABG HHb (Measured) ABG Methemoglobin Nathan Test A-a O2 Difference Respiratory Index Hgb O2 Saturation Liter Flow FiO2 Sodium Potassium 3.5 L Chloride Carbon Dioxide Anion Gap BUN Creatinine Est GFR ( Amer) Est GFR (Non-Af Amer) Random Glucose Serum Osmolality Lactic Acid 4.1 H* Calcium Magnesium 2.3 Total Bilirubin AST ALT Alkaline Phosphatase Total Protein Albumin Globulin Albumin/Globulin Ratio Urine Color Urine Clarity Urine pH Ur Specific [place] Urine Protein Urine Glucose (UA) Urine Ketones Urine Blood Urine Nitrate Urine Bilirubin Urine Urobilinogen Ur Leukocyte Esterase Urine WBC (Auto) Urine RBC (Auto) Urine Bacteria Granular Casts (Auto) Urine Osmolality Ur Random Creatinine Ur Random Sodium Urine HCG, Qual Salicylates Urine Opiates Screen Negative Urine Methadone Screen No result Ur Barbiturates Screen Negative Ur Phencyclidine Scrn Negative Ur Amphetamines Screen Negative U Benzodiazepines Scrn Negative U Oth Cocaine Metabols Negative U Cannabinoids Screen Negative Alcohol, Quantitative 07/16/17 07/16/17 07/16/17 04:50 07:57 08:09 WBC RBC Hgb Hct MCV MCH MCHC RDW Plt Count MPV Neut % (Auto) Lymph % (Auto) [place] % (Auto) Eos % (Auto) Baso % (Auto) Neut # (Auto) Lymph # (Auto) [place] # (Auto) Eos # (Auto) Baso # (Auto) Puncture Site Lr pCO2 33 L pO2 277 H HCO3 14.3 L ABG pH 7.21 L ABG Total CO2 14.2 L ABG O2 Saturation 99.5 H ABG Base Excess -13.6 L ABG Hemoglobin 10.0 L ABG Carboxyhemoglobin 1.1 POC ABG HHb (Measured) 0.5 ABG Methemoglobin 0.8 Nathan Test Pos A-a O2 Difference 395.0 Respiratory Index 1.4 Hgb O2 Saturation 97.6 Liter Flow 15.0 FiO2 100.0 Sodium Potassium Chloride Carbon Dioxide Anion Gap BUN Creatinine Est GFR ( Amer) Est GFR (Non-Af Amer) Random Glucose Serum Osmolality 292 Lactic Acid Calcium Magnesium Total Bilirubin AST ALT Alkaline Phosphatase Total Protein Albumin Globulin Albumin/Globulin Ratio Urine Color Urine Clarity Urine pH Ur Specific [place] Urine Protein Urine Glucose (UA) Urine Ketones Urine Blood Urine Nitrate Urine Bilirubin Urine Urobilinogen Ur Leukocyte Esterase Urine WBC (Auto) Urine RBC (Auto) Urine Bacteria Granular Casts (Auto) Urine Osmolality 403 Ur Random Creatinine 16.8 Ur Random Sodium 164 Urine HCG, Qual Salicylates Urine Opiates Screen Urine Methadone Screen Ur Barbiturates Screen Ur Phencyclidine Scrn Ur Amphetamines Screen U Benzodiazepines Scrn U Oth Cocaine Metabols U Cannabinoids Screen Alcohol, Quantitative 07/16/17 07/16/17 07/16/17 08:09 08:09 08:11 WBC RBC Hgb Hct MCV MCH MCHC RDW Plt Count MPV Neut % (Auto) Lymph % (Auto) [place] % (Auto) Eos % (Auto) Baso % (Auto) Neut # (Auto) Lymph # (Auto) [place] # (Auto) Eos # (Auto) Baso # (Auto) Puncture Site pCO2 pO2 HCO3 ABG pH ABG Total CO2 ABG O2 Saturation ABG Base Excess ABG Hemoglobin ABG Carboxyhemoglobin POC ABG HHb (Measured) ABG Methemoglobin Nathan Test A-a O2 Difference Respiratory Index Hgb O2 Saturation Liter Flow FiO2 Sodium 141 Potassium 4.3 Chloride 110 H Carbon Dioxide 18 L Anion Gap 17 BUN 6 L Creatinine 0.7 Est GFR ( Amer) > 60 Est GFR (Non-Af Amer) > 60 Random Glucose 73 Serum Osmolality Lactic Acid 2.6 H Calcium 8.4 L Magnesium Total Bilirubin AST ALT Alkaline Phosphatase Total Protein Albumin Globulin Albumin/Globulin Ratio Urine Color Urine Clarity Urine pH Ur Specific [place] Urine Protein Urine Glucose (UA) Urine Ketones Urine Blood Urine Nitrate Urine Bilirubin Urine Urobilinogen Ur Leukocyte Esterase Urine WBC (Auto) Urine RBC (Auto) Urine Bacteria Granular Casts (Auto) Urine Osmolality Ur Random Creatinine Ur Random Sodium Urine HCG, Qual Salicylates < 1.0 Urine Opiates Screen Urine Methadone Screen Ur Barbiturates Screen Ur Phencyclidine Scrn Ur Amphetamines Screen U Benzodiazepines Scrn U Oth Cocaine Metabols U Cannabinoids Screen Alcohol, Quantitative Attending/Attestation - Attestation I have personally seen and examined this patient.: Yes I have fully participated in the care of the patient.: Yes I have reviewed all pertinent clinical information: Yes Notes (Text): New onset seizure appears at home, 1st episode prior to fall leading to right shoulder dislocation, confirmed proximal fracture, s/p reduction in ER, now on sling, second witnessed seizure in ER. Metabolic acidosis and hemoconcentration likely form seizure, clinically not dehydrated, infiltrate right > left likely from aspiration. Initial 3 episodes of vomiting, unclear etio, currently not vomiting, unremarkeble abd exam and CT. Plan Abx for pna, aspiration Seizure precaution, MRI of brain, neurology consult IVF, repeat labs, expect improvement as suspected from seizure episode GI/DVT prophylaxis See orders for detail.
[2017-07-16] MEDS: Sodium Chloride 0.9% 1,000 ML IV SCH ×3 (07:24→20:20)
--- NOTE | 2017-07-16 07:29 | CT ---
EXAM: CT Chest With Intravenous Contrast EXAM DATE/TIME: 07/16/2017 6:31 AM CLINICAL HISTORY: 36 years old, female; Pain; Chest pain; Additional medially: Infiltrate, ? effusion on r lung. Chest w/contrast was add after i done abd &pelv w/iv . TECHNIQUE: Axial computed tomography images of the chest with intravenous contrast. All CT scans at this facility use one or more dose reduction techniques, viz.: automated exposure control; ma/kV adjustment per patient size (including targeted exams where dose is matched to indication; i.e. head); or iterative reconstruction technique. Coronal and sagittal reformatted images were created and reviewed. CONTRAST: 100 mL of [id number] administered intravenously. COMPARISON: No relevant prior studies available. FINDINGS: LUNGS: Findings suspicious for pneumonia versus atelectasis in the right lower lobe medially. Areas of dense consolidation are seen, associated with air bronchograms. Additional areas of dense consolidation in the left lower lobe posteriorly, most likely representing dependent atelectasis. No evidence of diffuse pulmonary vascular congestion. PLEURAL SPACE: No pneumothorax or significant pleural effusions seen. HEART: No evidence of significant pericardial effusion. BONES/JOINTS: Fracture of the right proximal humerus, involving the humeral head laterally, incompletely seen on this exam, but appearing recent (acute or subacute) in nature. No additional acute fractures seen. SOFT TISSUES: Moderate abnormal fluid/edema in the deep right supraclavicular and axillary fat. Abnormal swelling of the right shoulder soft tissues, especially involving the right subscapularis muscle, which appears enlarged and heterogeneous. No evidence of soft tissue gas, focal abscess formation, or large soft tissue hematoma. VASCULATURE: Exam is nondiagnostic for aortic dissection and pulmonary emboli, secondary to suboptimal enhancement. LYMPH NODES: No evidence of diffuse lymphadenopathy. IMPRESSION: - Right proximal humerus fracture, suspected to be recent (acute or subacute), incompletely seen on this exam. - Moderate fluid/edema in the deep right supraclavicular and axillary fat. Swelling of the right shoulder soft tissues, especially the right subscapularis muscle, which appears enlarged and heterogeneous. Findings are of uncertain etiology, but could represent soft tissue contusion/edema from recent trauma. No soft tissue gas or large acute hematoma is seen. - Findings suspicious for pneumonia in the right lower lobe medially. - See above for remaining findings.
--- NOTE | 2017-07-16 07:41 | CT ---
EXAM: CT Abdomen and Pelvis With Intravenous Contrast EXAM DATE/TIME: 07/16/2017 4:56 AM CLINICAL HISTORY: 36 years old, female; Pain; Abdominal pain; Additional info: Abd pain, vomiting TECHNIQUE: Axial computed tomography images of the abdomen and pelvis with intravenous contrast. All CT scans at this facility use one or more dose reduction techniques, viz.: automated exposure control; ma/kV adjustment per patient size (including targeted exams where dose is matched to indication; i.e. head); or iterative reconstruction technique. Coronal and sagittal reformatted images were created and reviewed. CONTRAST: 100 mL of [id number] administered intravenously. COMPARISON: No relevant prior studies available. FINDINGS: LIMITATIONS: Mild streak/motion artifact. ABDOMEN: LIVER: Fatty infiltration of the liver. GALLBLADDER AND BILE DUCTS: No CT evidence of acute cholecystitis. No evidence of significant biliary ductal dilatation. PANCREAS: No CT evidence of acute pancreatitis. SPLEEN: No acute abnormality of the spleen identified. ADRENALS: No acute abnormality of the adrenal glands identified. KIDNEYS AND URETERS: Left nephrogram has a subtle striated appearance. No evidence of perinephric fluid collection. No renal stones, hydronephrosis, or hydroureter seen. STOMACH AND BOWEL: No acute abnormality of the stomach, small bowel or colon identified. No evidence of bowel obstruction. APPENDIX: Appendix is seen, and is within normal limits in appearance. PELVIS: BLADDER: Small focus of air in the bladder lumen, presumably iatrogenic, such as related to recent bladder catheterization. Recommend clinical correlation. REPRODUCTIVE: Very small 1.6 cm lesion with a thin, enhancing and collapsed soft tissue rim in the left ovary. This has an appearance suggestive of a recently ruptured/involuting ovarian cyst, such as a corpus luteal cyst. Followup pelvic ultrasound as clinically indicated. No acute abnormality of the uterus identified. ABDOMEN and PELVIS: INTRAPERITONEAL SPACE: No evidence of free intraperitoneal air or fluid. BONES/JOINTS: No acute fractures or other acute bony abnormality noted. SOFT TISSUES: No acute abnormality of the visualized soft tissues is seen. VASCULATURE: No evidence of abdominal aortic aneurysm. No evidence of periaortic hemorrhage. LYMPH NODES: No evidence of diffuse lymphadenopathy. IMPRESSION: - Striated appearance of the left nephrogram, a subtle finding, which could represent mild left pyelonephritis. Recommend clinical correlation. - Otherwise, no evidence of significant acute process. - See above for remaining findings.
[2017-07-16 08:47] LABS: BLOOD UREA NITROGEN 6 mg/dL (7-17); CALCIUM 8.4 mg/dl (8.6-10.4); GFR AFRICAN-AMERICAN > 60; GFR NON-AFRICAN AMERICAN > 60
[2017-07-16 09:04] LABS: CREATININE, RANDOM URINE 16.8 mg/dL
[2017-07-16] MEDS ORDERED: levETIRAcetam 1,000 MG in Sodium Chloride 0.9% 100 ML IVPB ONE (09:10)
--- NOTE | 2017-07-16 09:11 | RAD ---
HISTORY: leukocytosis COMPARISON: No prior. FINDINGS: LUNGS: There is confluent airspace disease in the right lower lobe. The left lung is clear. PLEURA: No significant pleural effusion identified, no pneumothorax apparent. CARDIOVASCULAR: Normal. OSSEOUS STRUCTURES: No significant abnormalities. VISUALIZED UPPER ABDOMEN: Normal. OTHER FINDINGS: None. IMPRESSION: Suspect right lower lobe pneumonia. Follow-up is advised.
--- NOTE | 2017-07-16 09:35 | RAD ---
PROCEDURE: Radiographs of the Right Shoulder HISTORY: Pain, fall, deformity COMPARISON: No prior. FINDINGS: BONES: There is an acute displaced comminuted fracture in the greater tuberosity of the humerus. JOINTS: There is near normal glenohumeral alignment. The acromioclavicular joint is normal. SOFT TISSUES: Normal. OTHER FINDINGS: None. IMPRESSION: Status post closed reduction, near normal glenohumeral alignment and acute comminuted displaced fracture in the greater tuberosity of the humerus with
[2017-07-16] MEDS: Azithromycin 500 MG in Sodium Chloride 0.9% 250 ML IVPB SCH (10:44)
--- NOTE | 2017-07-16 14:55 | MRI ---
PROCEDURE: MRI BRAIN WITH AND WITHOUT CONTRAST HISTORY: s/p seizure COMPARISON: Noncontrast head CT from 07/16/2017 TECHNIQUE: Multiplanar, multisequence MR images of the brain were obtained with and without intravenous contrast enhancement. 15 mL Omniscan was injected intravenously. FINDINGS: HEMORRHAGE: None DWI: No evidence of an acute or early subacute infarction. BRAIN PARENCHYMA: Tony-white matter differentiation is preserved. There is no mass, mass effect or abnormal extra-axial fluid collection. There is no territorial infarction. The midline sagittal structures are normal. ENHANCEMENT: No abnormal intracranial enhancement. VENTRICLES: The ventricles are normal in size, shape and configuration. CRANIUM: There is normal bone marrow signal pattern. ORBITS: Grossly unremarkable. PARANASAL SINUSES/MASTOIDS: Predominantly clear. VASCULAR SYSTEM: There are normal signal voids in the larger intracranial arteries. OTHER FINDINGS: None . IMPRESSION: Normal pre and post contrast enhanced MRI of the brain.
--- NOTE | 2017-07-16 15:28 | CP.PCM.CON ---
History of Present Illness - History of Present Illness History of Present Illness: 36 yr old woman, right handed who had a seizure while delivering her daughter , because, she says, it was a "breech" presentation, in [facility], originally residing in [facility], with no pmh, presented to the [facility] ER last night after several bouts of vomiting and gi upset. In the ER, the patient had a generalzied seizure, and had a prolonged postictal state with arm weakness. Patient states that before the seizure, there was no aura, no diaphoresis, and that she was started on antiepileptic medications in [place], but stopped taking it soon after delivery. She has a healthy 4 year old daughter, and no family history of epilepsy or pmh of febrile seizures. There is no history of epilepsy as a child, no meningitis, no encephalitis, no head trauma or prolonged period of loss of consciousness. She is able to participate in physical exam and history. PMH/PSH: as above, IUTD, no other medical problems. FH/SH: , lives in [facility]. No tobacco, no etoh. All: nkda. on exam: Normal neurological examination except for left arm weakness. Past Patient History - Past Social History Smoking Status: Never Smoked - CARDIAC Hx Hypertension: No - MUSCULOSKELETAL/RHEUMATOLOGICAL Hx Falls: Yes - GASTROINTESTINAL Hx Gastritis: Yes - PSYCHIATRIC Hx Substance Use: No - ANESTHESIA Hx Anesthesia: Yes Hx Anesthesia Reactions: No Hx Malignant Hyperthermia: No Meds Allergies/Adverse Reactions: Allergies Allergy/AdvReac Type Severity Reaction Status Date / Time No Known Allergies Allergy Verified 07/16/17 02:59 - Medications Medications: Current Medications Enoxaparin Sodium (Lovenox) 40 mg SC DAILY [facility] Azithromycin 500 mg/ Sodium (Chloride) 250 mls @ 250 mls/hr IVPB DAILY [facility] PRN Reason: Protocol Last Admin: 07/16/17 10:44 Dose: 250 mls/hr Ceftriaxone Sodium 2 gm/ (Sodium Chloride) 100 mls @ 100 mls/hr IVPB Q24H [facility] PRN Reason: Protocol Sodium Chloride (Sodium Chloride 0.9%) 1,000 mls @ 150 mls/hr IV .Q6H40M [facility] Last Admin: 07/16/17 07:24 Dose: 150 mls/hr Levetiracetam 500 mg/ Sodium (Chloride) 105 mls @ 420 mls/hr IVPB Q12H [facility] Pantoprazole Sodium (Protonix Inj) 40 mg IVP DAILY [facility] Last Admin: 07/16/17 10:07 Dose: 40 mg Results - Vital Signs Recent Vital Signs: Last Vital Signs Temp 98.6 F 07/16/17 12:00 Pulse 95 H 07/16/17 11:55 Resp 21 07/16/17 11:55 BP 104/69 07/16/17 11:55 Pulse Ox 100 07/16/17 11:55 - Labs Result Diagrams: 07/16/17 03:16 07/16/17 08:09 Labs: Laboratory Results - last 24 hr 07/16/17 07/16/17 07/16/17 02:59 03:16 03:16 WBC 22.1 H RBC 4.74 Hgb 13.7 Hct 42.9 MCV 90.5 MCH 28.9 MCHC 32.0 L RDW 15.0 H Plt Count 326 MPV 8.9 Neut % (Auto) 72.4 Lymph % (Auto) 22.5 [place] % (Auto) 4.5 Eos % (Auto) 0.3 Baso % (Auto) 0.3 Neut # (Auto) 16.0 H Lymph # (Auto) 5.0 H [place] # (Auto) 1.0 H Eos # (Auto) 0.1 Baso # (Auto) 0.1 Puncture Site pCO2 pO2 HCO3 ABG pH ABG Total CO2 ABG O2 Saturation ABG Base Excess ABG Hemoglobin ABG Carboxyhemoglobin POC ABG HHb (Measured) ABG Methemoglobin Nathan Test A-a O2 Difference Respiratory Index Hgb O2 Saturation Liter Flow FiO2 Sodium 153 H Potassium 7.1 H* Chloride 113 H Carbon Dioxide 17 L Anion Gap 29 H BUN 8 Creatinine 0.9 Est GFR ( Amer) > 60 Est GFR (Non-Af Amer) > 60 Random Glucose 260 H Serum Osmolality Lactic Acid Calcium 10.2 Magnesium Total Bilirubin 0.7 AST 47 H ALT 43 Alkaline Phosphatase 125 Total Protein 9.2 H Albumin 4.9 Globulin 4.3 H Albumin/Globulin Ratio 1.1 Urine Color Straw Urine Clarity Clear Urine pH 5.0 Ur Specific Mcc[place] 1.015 Urine Protein 2+ H Urine Glucose (UA) 1+ Urine Ketones Negative Urine Blood 2+ H Urine Nitrate Negative Urine Bilirubin Negative Urine Urobilinogen Normal Ur Leukocyte Esterase Neg Urine WBC (Auto) 1 Urine RBC (Auto) 15 H Urine Bacteria Rare Granular Casts (Auto) 7 Urine Osmolality Ur Random Creatinine Ur Random Sodium Urine HCG, Qual Negative Salicylates Urine Opiates Screen Urine Methadone Screen Ur Barbiturates Screen Ur Phencyclidine Scrn Ur Amphetamines Screen U Benzodiazepines Scrn U Oth Cocaine Metabols U Cannabinoids Screen Alcohol, Quantitative < 10 07/16/17 07/16/17 07/16/17 03:17 04:40 04:40 WBC RBC Hgb Hct MCV MCH MCHC RDW Plt Count MPV Neut % (Auto) Lymph % (Auto) [place] % (Auto) Eos % (Auto) Baso % (Auto) Neut # (Auto) Lymph # (Auto) [place] # (Auto) Eos # (Auto) Baso # (Auto) Puncture Site pCO2 pO2 HCO3 ABG pH ABG Total CO2 ABG O2 Saturation ABG Base Excess ABG Hemoglobin ABG Carboxyhemoglobin POC ABG HHb (Measured) ABG Methemoglobin Nathan Test A-a O2 Difference Respiratory Index Hgb O2 Saturation Liter Flow FiO2 Sodium Potassium 3.5 L Chloride Carbon Dioxide Anion Gap BUN Creatinine Est GFR ( Amer) Est GFR (Non-Af Amer) Random Glucose Serum Osmolality Lactic Acid 4.1 H* Calcium Magnesium 2.3 Total Bilirubin AST ALT Alkaline Phosphatase Total Protein Albumin Globulin Albumin/Globulin Ratio Urine Color Urine Clarity Urine pH Ur Specific [place] Urine Protein Urine Glucose (UA) Urine Ketones Urine Blood Urine Nitrate Urine Bilirubin Urine Urobilinogen Ur Leukocyte Esterase Urine WBC (Auto) Urine RBC (Auto) Urine Bacteria Granular Casts (Auto) Urine Osmolality Ur Random Creatinine Ur Random Sodium Urine HCG, Qual Salicylates Urine Opiates Screen Negative Urine Methadone Screen No result Ur Barbiturates Screen Negative Ur Phencyclidine Scrn Negative Ur Amphetamines Screen Negative U Benzodiazepines Scrn Negative U Oth Cocaine Metabols Negative U Cannabinoids Screen Negative Alcohol, Quantitative 07/16/17 07/16/17 07/16/17 04:50 07:57 08:09 WBC RBC Hgb Hct MCV MCH MCHC RDW Plt Count MPV Neut % (Auto) Lymph % (Auto) [place] % (Auto) Eos % (Auto) Baso % (Auto) Neut # (Auto) Lymph # (Auto) [place] # (Auto) Eos # (Auto) Baso # (Auto) Puncture Site Lr pCO2 33 L pO2 277 H HCO3 14.3 L ABG pH 7.21 L ABG Total CO2 14.2 L ABG O2 Saturation 99.5 H ABG Base Excess -13.6 L ABG Hemoglobin 10.0 L ABG Carboxyhemoglobin 1.1 POC ABG HHb (Measured) 0.5 ABG Methemoglobin 0.8 Nathan Test Pos A-a O2 Difference 395.0 Respiratory Index 1.4 Hgb O2 Saturation 97.6 Liter Flow 15.0 FiO2 100.0 Sodium Potassium Chloride Carbon Dioxide Anion Gap BUN Creatinine Est GFR ( Amer) Est GFR (Non-Af Amer) Random Glucose Serum Osmolality 292 Lactic Acid Calcium Magnesium Total Bilirubin AST ALT Alkaline Phosphatase Total Protein Albumin Globulin Albumin/Globulin Ratio Urine Color Urine Clarity Urine pH Ur Specific [place] Urine Protein Urine Glucose (UA) Urine Ketones Urine Blood Urine Nitrate Urine Bilirubin Urine Urobilinogen Ur Leukocyte Esterase Urine WBC (Auto) Urine RBC (Auto) Urine Bacteria Granular Casts (Auto) Urine Osmolality 403 Ur Random Creatinine 16.8 Ur Random Sodium 164 Urine HCG, Qual Salicylates Urine Opiates Screen Urine Methadone Screen Ur Barbiturates Screen Ur Phencyclidine Scrn Ur Amphetamines Screen U Benzodiazepines Scrn U Oth Cocaine Metabols U Cannabinoids Screen Alcohol, Quantitative 07/16/17 07/16/17 07/16/17 08:09 08:09 08:11 WBC RBC Hgb Hct MCV MCH MCHC RDW Plt Count MPV Neut % (Auto) Lymph % (Auto) [place] % (Auto) Eos % (Auto) Baso % (Auto) Neut # (Auto) Lymph # (Auto) [place] # (Auto) Eos # (Auto) Baso # (Auto) Puncture Site pCO2 pO2 HCO3 ABG pH ABG Total CO2 ABG O2 Saturation ABG Base Excess ABG Hemoglobin ABG Carboxyhemoglobin POC ABG HHb (Measured) ABG Methemoglobin Nathan Test A-a O2 Difference Respiratory Index Hgb O2 Saturation Liter Flow FiO2 Sodium 141 Potassium 4.3 Chloride 110 H Carbon Dioxide 18 L Anion Gap 17 BUN 6 L Creatinine 0.7 Est GFR ( Amer) > 60 Est GFR (Non-Af Amer) > 60 Random Glucose 73 Serum Osmolality Lactic Acid 2.6 H Calcium 8.4 L Magnesium Total Bilirubin AST ALT Alkaline Phosphatase Total Protein Albumin Globulin Albumin/Globulin Ratio Urine Color Urine Clarity Urine pH Ur Specific [place] Urine Protein Urine Glucose (UA) Urine Ketones Urine Blood Urine Nitrate Urine Bilirubin Urine Urobilinogen Ur Leukocyte Esterase Urine WBC (Auto) Urine RBC (Auto) Urine Bacteria Granular Casts (Auto) Urine Osmolality Ur Random Creatinine Ur Random Sodium Urine HCG, Qual Salicylates < 1.0 Urine Opiates Screen Urine Methadone Screen Ur Barbiturates Screen Ur Phencyclidine Scrn Ur Amphetamines Screen U Benzodiazepines Scrn U Oth Cocaine Metabols U Cannabinoids Screen Alcohol, Quantitative - Imaging and Cardiology CT scan - head Status: Image reviewed by me (Ct head: normal. ), Pending (MRI Brain: per my reading, shows some left sided hippocampal atrophy, no intracranial lesions, no ), Report reviewed by me (MRI Brain: shows ?left hippocampal sclerosis, official report pending, no lesions, no strokes. 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 She does have some indication of sepsis, but the fact that she had a seizure during childbirth which is unusual unless she had preeclampsia , (which she denies),hints that she needs daily epilepsy medication. I will load her with keppra and continue on daily dose, as well as EEG. Plan: 1. Keppra 500 mg bid 2. EEG 3. Official MRI Brain report. Thank you for this interesting consult. Our team will follow. Dr. Hilton
[2017-07-16] MEDS: levETIRAcetam 500 MG in Sodium Chloride 0.9% 100 ML IVPB SCH (16:17)
[2017-07-16] MEDS: Enoxaparin 40 mg Syringe SC SCH (16:18)
--- NOTE | 2017-07-16 21:41 | CARD ---
APPROVED REPORT EXAM: Two-dimensional and M-mode echocardiogram with Doppler and color Doppler. Other Information Quality : GoodRhythm : INDICATION Syncope 2D DIMENSIONS IVSd0.8 (0.7-1.1cm)LVDd4.5 (3.9-5.9cm) PWd0.8 (0.7-1.1cm)LVDs3.2 (2.5-4.0cm) FS (%) 28.7 %LVEF (%)55.4 (>50%) M-Mode DIMENSIONS Left Atrium (MM)3.33 (2.5-4.0cm)Aortic Root2.86 (2.2-3.7cm) Aortic Cusp Exc.2.14 (1.5-2.0cm) Mitral Valve MV E Pvisyvdh192.9cm/sMV A Chbcfowk70.3cm/sE/A ratio1.6 TDI E/Lateral E'0.0E/Medial E'0.0 Tricuspid Valve TR Peak Nrdtikzv568lv/sTR Peak Gr.[id number] LEFT VENTRICLE The left ventricle is normal size. There is normal left ventricular wall thickness. Left ventricle systolic function is normal. The Ejection Fraction is 50-55%. There is normal LV segmental wall motion. The left ventricular diastolic function is normal. No left ventricle thrombus noted on this study. RIGHT VENTRICLE The right ventricle is normal size. The right ventricular systolic function is normal. ATRIA The left atrium size is normal. The right atrium size is normal. AORTIC VALVE The aortic valve is mildly thickened. The aortic valve is trileaflet. No aortic regurgitation is present. There is no aortic valvular stenosis. There is no aortic valvular vegetation. MITRAL VALVE Mitral annular calcification is mild. There is no evidence of mitral valve prolapse. There is no mitral valve stenosis. There is no mitral valve regurgitation noted. TRICUSPID VALVE The tricuspid valve is normal in structure. There is trace tricuspid regurgitation. Right ventricular systolic pressure is estimated at less than 30 mmHg. There is no pulmonary hypertension. There is no tricuspid valve prolapse or vegetation. There is no tricuspid valve stenosis. PULMONIC VALVE The pulmonic valve is not well visualized. There is no pulmonic valvular regurgitation. GREAT VESSELS The aortic root is normal in size. The IVC is normal in size and collapses >50% with inspiration. PERICARDIAL EFFUSION There is no pericardial effusion. There is no pleural effusion. <Conclusion> The left ventricle is normal size. Left ventricle systolic function is normal. The Ejection Fraction is 50-55%. The left ventricular diastolic function is normal. The right ventricle is normal size. The right ventricular systolic function is normal. The left atrium size is normal. The right atrium size is normal. There is trace tricuspid regurgitation. There is no pulmonary hypertension. Essentially normal M-mode, 2D and doppler echocardiogram.
[2017-07-17] MEDS: Sodium Chloride 0.9% 1,000 ML IV SCH (03:00)
[2017-07-17] MEDS: levETIRAcetam 500 MG in Sodium Chloride 0.9% 100 ML IVPB SCH ×2 (05:17→17:22)
[2017-07-17 06:09] LABS: BASO % 0.3 % (0.0-2.0); EOS % 0.2 % (0.0-4.0); HEMOGLOBIN 10.3 g/dL (11.0-16.0); LYMPH # 1.9 K/uL (1.0-4.3); LYMPH % 18.8 % (20.0-40.0); MEAN CELL VOLUME 86.7 fL (81.0-99.0); MEAN CORPUSCULAR HEMOGLOBIN 29.4 pg (27.0-31.0); MEAN CORPUSCULAR HGB CONC 33.9 g/dL (33.0-37.0); MEAN PLATELET VOLUME 8.7 fL (7.2-11.7); MONO # 0.7 K/uL (0.0-0.8); MONO % 7.2 % (0.0-10.0); NEUT # 7.5 K/uL (1.8-7.0); NEUT % 73.5 % (50.0-75.0); RBC 3.51 Mil/uL (3.80-5.20); RED CELL DISTRIBUTION WIDTH 14.3 % (11.5-14.5); WHITE BLOOD COUNT 10.1 K/uL (4.8-10.8)
[2017-07-17 06:31] LABS: ALBUMIN 3.2 g/dL (3.5-5.0); ALT/SGPT 41 U/L (9-52); AST/SGOT 47 U/L (14-36); BLOOD UREA NITROGEN 5 mg/dL (7-17); CALCIUM 7.4 mg/dl (8.6-10.4); GFR AFRICAN-AMERICAN > 60; GFR NON-AFRICAN AMERICAN > 60
--- NOTE | 2017-07-17 06:44 | CP.PCM.PN ---
Subjective - Date & Time of Evaluation Date of Evaluation: 07/17/17 Time of Evaluation: 06:41 - Subjective Subjective: Ms. Rivera was seen and examined at the bedside in ICU. She is alert, oriented x3. She denies any headache, lightheadedness, blurred vision, diplopia. She complains of pain in her right shoulder with movement. She i sable to move minimally her fingers in her right hand, but spontaneously move all other extremities. MRI of the brain done 07/16/2017 showed no acute intracranial findings. There was no untoward events overnight. Objective - Vital Signs/Intake and Output Vital Signs (last 24 hours): Temp Pulse Resp BP Pulse Ox 98.5 F 88 20 114/78 95 07/17/17 04:00 07/17/17 06:00 07/17/17 06:00 07/17/17 05:03 07/17/17 06:00 Intake and Output: 07/16/17 07/17/17 18:59 06:59 Intake Total 3074 2440 Output Total 1725 1000 Balance 1349 1440 - Medications Medications: Current Medications Enoxaparin Sodium (Lovenox) 40 mg SC DAILY [facility] Last Admin: 07/16/17 16:18 Dose: 40 mg Azithromycin 500 mg/ Sodium (Chloride) 250 mls @ 250 mls/hr IVPB DAILY [facility] PRN Reason: Protocol Last Admin: 07/16/17 10:44 Dose: 250 mls/hr Ceftriaxone Sodium 2 gm/ (Sodium Chloride) 100 mls @ 100 mls/hr IVPB Q24H [facility] PRN Reason: Protocol Sodium Chloride (Sodium Chloride 0.9%) 1,000 mls @ 150 mls/hr IV .Q6H40M [facility] Last Admin: 07/17/17 03:00 Dose: 150 mls/hr Levetiracetam 500 mg/ Sodium (Chloride) 105 mls @ 420 mls/hr IVPB Q12H [facility] Last Admin: 07/17/17 05:17 Dose: 420 mls/hr Pantoprazole Sodium (Protonix Inj) 40 mg IVP DAILY [facility] Last Admin: 07/16/17 10:07 Dose: 40 mg - Labs Labs: 07/17/17 05:50 07/17/17 05:57 - Constitutional Appears: No Acute Distress - Head Exam Head Exam: NORMAL INSPECTION - Neurological Exam Neurological Exam: Alert, Awake, Oriented x3 Neuro motor strength exam: Left Upper Extremity: 5, Left Lower Extremity: 5 Additional comments: She is alert, oriented, follows simple commands. Sensation is intact. Assessment and Plan (1) Seizures Assessment & Plan: Case discussed with Dr. Jorgensen, continue all current medical, physical therapies. Pending EEG. Status: Acute
[2017-07-17] MEDS ORDERED: Potassium Chloride 20 mEq ER Tab PO ONE (08:04)
[2017-07-17] MEDS ORDERED: cefTRIAXone 2 GM in Sodium Chloride 0.9% 100 ML IVPB SCH (09:00)
[2017-07-17] MEDS: Lactated Ringer's 1,000 ML IV SCH ×2 (09:44→20:32)
[2017-07-17] MEDS: Enoxaparin 40 mg Syringe SC SCH (09:44)
[2017-07-17] MEDS: Azithromycin 500 MG in Sodium Chloride 0.9% 250 ML IVPB SCH (09:45)
--- NOTE | 2017-07-17 09:47 | CP.PCM.CON ---
History of Present Illness - History of Present Illness History of Present Illness: Orthopedic consultation Dr. Cai 36F RHD complains of right shoulder pain after fall during seizure yesterday. Shoulder dislocation was found on ER in ED and closed reduction was performed in ED. Patient states pain is better now. Currently denies numbness/tingling in right arm/hand. She denies pain in other extremities. Denies headache/neck pain/ back pain. Denies CP//dizziness. No prior shoulder dislocation or injury. Review of Systems - Review of Systems All systems: reviewed and no additional remarkable complaints except - Constitutional Constitutional: Weakness - Cardiovascular Cardiovascular: As Per HPI - Respiratory Respiratory: As Per HPI - Gastrointestinal Gastrointestinal: As Per HPI - Musculoskeletal Musculoskeletal: As Per HPI - Integumentary Additional comments: swelling - Hematologic/Lymphatic Hematologic: absent: As Per HPI, Easy Bleeding, Easy Bruising, Lymphadenopathy, Other Past Patient History - Past Medical History & Family History Past Medical History?: No Past Family History: Reviewed and not pertinent - Past Social History Smoking Status: Never Smoked Alcohol: None Drugs: Denies Home Situation {Lives}: With Family - CARDIAC Hx Hypertension: No - MUSCULOSKELETAL/RHEUMATOLOGICAL Hx Falls: Yes - GASTROINTESTINAL Hx Gastritis: Yes - PSYCHIATRIC Hx Substance Use: No - ANESTHESIA Hx Anesthesia: Yes Hx Anesthesia Reactions: No Hx Malignant Hyperthermia: No Meds Allergies/Adverse Reactions: Allergies Allergy/AdvReac Type Severity Reaction Status Date / Time No Known Allergies Allergy Verified 07/16/17 02:59 - Medications Medications: Current Medications Enoxaparin Sodium (Lovenox) 40 mg SC DAILY [facility] Last Admin: 07/16/17 16:18 Dose: 40 mg Azithromycin 500 mg/ Sodium (Chloride) 250 mls @ 250 mls/hr IVPB DAILY [facility] PRN Reason: Protocol Last Admin: 07/16/17 10:44 Dose: 250 mls/hr Ceftriaxone Sodium 2 gm/ (Sodium Chloride) 100 mls @ 100 mls/hr IVPB Q24H [facility] PRN Reason: Protocol Last Admin: 07/17/17 08:14 Dose: 100 mls/hr Levetiracetam 500 mg/ Sodium (Chloride) 105 mls @ 420 mls/hr IVPB Q12H [facility] Last Admin: 07/17/17 05:17 Dose: 420 mls/hr Lactated Ringer's (Lactated Ringer's) 1,000 mls @ 100 mls/hr IV .Q10H [facility] Pantoprazole Sodium (Protonix Inj) 40 mg IVP DAILY [facility] Last Admin: 07/16/17 10:07 Dose: 40 mg Physical Exam - Constitutional Appears: Well, No Acute Distress - Head Exam Head Exam: ATRAUMATIC - Respiratory Exam Respiratory Exam: NORMAL BREATHING PATTERN - Cardiovascular Exam Additional comments: +radial pulse - Expanded Upper Extremities Exam Right Shoulder exam: swelling, tenderness Elbow exam: full ROM, normal inspection Forearm Wrist exam: normal inspection Neuro motor exam: finger 2-5 abduction intact, thumb opposition intact, wrist extension intact Neurosensory exam: median nerve intact, radial nerve intact, ulnar nerve intact Vascular exam: radial pulse - Neurological Exam Neurological exam: Alert, Oriented x3 - Psychiatric Exam Psychiatric exam: Normal Affect, Normal Mood - Skin Skin Exam: Dry, Intact, Normal Color, Warm Results - Vital Signs Recent Vital Signs: Last Vital Signs Temp 99.3 F 07/17/17 08:00 Pulse 94 H 07/17/17 09:03 Resp 17 07/17/17 09:03 BP 111/71 07/17/17 09:03 Pulse Ox 98 07/17/17 09:03 - Labs Result Diagrams: 07/17/17 05:50 07/17/17 05:57 Labs: Laboratory Results - last 24 hr 07/16/17 07/16/17 07/17/17 15:36 15:56 05:50 WBC 10.1 D RBC 3.51 L Hgb 10.3 L D Hct 30.4 L MCV 86.7 D MCH 29.4 MCHC 33.9 RDW 14.3 Plt Count 214 D MPV 8.7 Neut % (Auto) 73.5 Lymph % (Auto) 18.8 L [place] % (Auto) 7.2 Eos % (Auto) 0.2 Baso % (Auto) 0.3 Neut # (Auto) 7.5 H Lymph # (Auto) 1.9 [place] # (Auto) 0.7 Eos # (Auto) 0.0 Baso # (Auto) 0.0 Sodium Potassium Chloride Carbon Dioxide Anion Gap BUN Creatinine Est GFR ( Amer) Est GFR (Non-Af Amer) Random Glucose Lactic Acid 1.9 Calcium Phosphorus Magnesium Total Bilirubin AST ALT Alkaline Phosphatase Total Protein Albumin Globulin Albumin/Globulin Ratio Influenza Typ A,B (EIA) Negative for flu a/b 07/17/17 05:57 WBC RBC Hgb Hct MCV MCH MCHC RDW Plt Count MPV Neut % (Auto) Lymph % (Auto) [place] % (Auto) Eos % (Auto) Baso % (Auto) Neut # (Auto) Lymph # (Auto) [place] # (Auto) Eos # (Auto) Baso # (Auto) Sodium 139 Potassium 3.4 L Chloride 110 H Carbon Dioxide 19 L Anion Gap 14 BUN 5 L Creatinine 0.7 Est GFR ( Amer) > 60 Est GFR (Non-Af Amer) > 60 Random Glucose 80 Lactic Acid Calcium 7.4 L Phosphorus 3.2 Magnesium 2.0 Total Bilirubin 1.3 AST 47 H ALT 41 Alkaline Phosphatase 70 Total Protein 6.2 L Albumin 3.2 L D Globulin 3.1 Albumin/Globulin Ratio 1.0 Influenza Typ A,B (EIA) - Impressions Impression: Patient Name / ID : BORIS [id number] / [id number] Exam Date : 07/16/2017 03:26:39 ( Approved ) Study Comment : Sex / Age : F / 36Y Creator : Matti Henry Dictator : Guillermina Reeves MD Sugar Drier : Horse Stud Manager : Guillermina Reeves MD Approver2 : Report Date : 07/16/2017 08:43:24 My Comment : PROCEDURE: Radiographs of the Right Shoulder HISTORY: Pain, fall, deformity COMPARISON: No prior. FINDINGS: BONES: There is an acute displaced comminuted fracture in the greater tuberosity of the humerus. JOINTS: There is near normal glenohumeral alignment. The acromioclavicular joint is normal. SOFT TISSUES: Normal. OTHER FINDINGS: None. IMPRESSION: Status post closed reduction, near normal glenohumeral alignment and acute comminuted displaced fracture in the greater tuberosity of the humerus with Assessment & Plan (1) Closed fracture dislocation of right shoulder joint Assessment and Plan: reduced in ER Still reduced on Chest CT CT of shoulder ordered shoulder immobilizer at all times ice NWB d/w Dr. Cai, awaiting CT Addendum: Imaging reviewed by Dr. Cai arthroscopy/ORIF indicated risks/benefits/alternatives of surgery discussed with patient and at length, verbalized understanding and consented to procedure. NPO p MN for OR 07/18 3pm if medically optimized Status: Acute
--- NOTE | 2017-07-17 10:20 | CP.PCM.PN ---
Subjective - Date & Time of Evaluation Date of Evaluation: 07/17/17 Time of Evaluation: 10:00 - Subjective Subjective: Hospitalist Progress Note Patient was seen and examined at 10:00 AM 07/17/17 ICU Bed 18 36 year old female who was admitted morning of 07/16/17 s/p fall and was found to have Seizure, Right Shoulder Dislocation, and RLL Pneumonia. Her Right Shoulder was reduced in the emergency room and she was then admitted to the ICU for further treatment and evaluation. Upon ROS: Right Shoulder pain Right lateral tongue pain Has not moved bowels today NO other complaints Exam: General: AAOX3, NAD HEENT: NCA, EOMI, PERRLA, NO cervical/supraclavicular/submandibular lymphadenopathy, NO pharyngeal erythema/exudate, Nasal Turbinates are nonerythematous/nonedematous, Oral Mucosa is moist, Right Lateral Tongue Laceration and Left Lateral Tongue Laceration starting to scab over Cardio: NS1 and NS2, NO M/R/G Resp: CTA B/L, NO R/R/W (DID NOT APPRECIATE ANY RALES) GI: BSx4, Soft, NT, NO HSM, NO guarding/rebound tenderness Ext: Pulses are strong and equal, Capillary Refill is 2 seconds, NO edema, Right Arm in Flexion in Sling Neuro: CN II through XII are grossly intact Assessment and Plan: 1). Sepsis Secondary to RLL Pneumonia CT Chest 07/16/17 showed evidence of RLL Azithromycin 500 mg IV 1x/day (07/16/17) Ceftriaxone 2 gm IV Q24H (07/16/17) F/U Blood Culture F/U Urine Culture F/U Mycoplasma IgG, IgM F/U Urine Strep Ag F/U Urine Legionella Rapid Influenza is negative Status: Acute 2). Seizure Keppra 500 mg PO 2x/day CT Head 07/16/17: NO acute findings Brain MRI 07/16/17: normal pre and post contrast enhanced brain F/U EEG Neurology Dr. Hilton Status: Acute 3). Right Shoulder Dislocation/Right Humerus Fracture Reduced in ER at the time of admission F/U Right Shoulder CT Orthopedics Dr. Cai Status: Acute 4). Tongue Laceration Secondary to the seizure Lidocaine 2% Viscous 15 ml PO Swish and Spit ACHS Status: Acute 5). Prohylaxis Lovenox 40 mg SC 1x/day Protonix 40 mg IV 1x/day Florastor 250 mg PO 2x/day Regular Diet Status: Acute Gómez Dash D.O. Objective - Vital Signs/Intake and Output Vital Signs (last 24 hours): Temp Pulse Resp BP Pulse Ox 99.3 F 94 H 17 111/71 98 07/17/17 08:00 07/17/17 09:03 07/17/17 09:03 07/17/17 09:03 07/17/17 09:03 Intake and Output: 07/17/17 07/17/17 06:59 18:59 Intake Total 2440 150 Output Total 1000 Balance 1440 150 - Medications Medications: Current Medications Enoxaparin Sodium (Lovenox) 40 mg SC DAILY [facility] Last Admin: 07/17/17 09:44 Dose: 40 mg Azithromycin 500 mg/ Sodium (Chloride) 250 mls @ 250 mls/hr IVPB DAILY [facility] PRN Reason: Protocol Last Admin: 07/17/17 09:45 Dose: 250 mls/hr Ceftriaxone Sodium 2 gm/ (Sodium Chloride) 100 mls @ 100 mls/hr IVPB Q24H [facility] PRN Reason: Protocol Last Admin: 07/17/17 08:14 Dose: 100 mls/hr Levetiracetam 500 mg/ Sodium (Chloride) 105 mls @ 420 mls/hr IVPB Q12H [facility] Last Admin: 07/17/17 05:17 Dose: 420 mls/hr Lactated Ringer's (Lactated Ringer's) 1,000 mls @ 100 mls/hr IV .Q10H [facility] Last Admin: 07/17/17 09:44 Dose: 100 mls/hr Pantoprazole Sodium (Protonix Inj) 40 mg IVP DAILY [facility] Last Admin: 07/17/17 09:44 Dose: 40 mg - Labs Labs: 07/17/17 05:50 07/17/17 05:57
--- NOTE | 2017-07-17 12:02 | CP.CCUPN ---
<Malina Goldman - Last Filed: 07/17/17 12:45> CCU Subjective - Physician Review Subjective (Free Text): 07/17/17 12:00 Patient seen and examined at bedside. Per nursing no acute events overnight. No more seizures. Patient does not recall what happened yesterday. States that she had a seizure 4 years ago while , unsure which anti-seizure medication she was taking. Currently she is doing well, offers no complaints. Denies headaches, dizziness, cp, palpitations, sob, cough, abdominal pain, urinary symptoms. CCU Objective - Vital Signs / Intake & Output Vital Signs (Last 4 hours): Vital Signs Pulse Resp BP Pulse Ox 07/17/17 09:03 94 H 17 111/71 98 07/17/17 08:04 84 18 106/72 96 Intake and Output (Last 8hrs): Intake & Output 07/16/17 07/17/17 07/17/17 22:59 06:59 14:59 Intake Total 1822 1480 150 Output Total 500 500 Balance 1322 980 150 Weight 83.325 kg Intake: Intake, IV Amount 1262 1300 150 Left Upper arm 1262 1300 150 Oral 560 180 Output: Urine 500 500 Urine, Voided 500 500 Other: # Voids Urine, Voided 1 1 # Bowel Movements 0 - Physical Exam Head: Positive for: Atraumatic, Normocephalic Pupils: Positive for: PERRL Extroacular Muscles: Positive for: EOMI Conjunctiva: Positive for: Normal Mouth: Positive for: Moist Mucous Membranes Neck: Positive for: Normal Range of Motion Respiratory/Chest: Positive for: Clear to Auscultation, Good Air Exchange. Negative for: Respiratory Distress, Accessory Muscle Use Cardiovascular: Positive for: Regular Rate and Rhythm, Normal S1, S2. Negative for: Murmurs Abdomen: Positive for: Normal Bowel Sounds. Negative for: Tenderness, Distention, Peritoneal Signs Upper Extremity: Positive for: NORMAL PULSES, Tenderness (Right shoulder), Swelling Lower Extremity: Positive for: Normal Inspection Neurological: Positive for: GCS=15, CN II-XII Intact, Speech Normal Skin: Positive for: Warm, Dry, Normal Color Psychiatric: Positive for: Alert, Oriented x 3 - Medications Active Medications: Active Medications Generic Name Dose Route Start Last Admin Trade Name Freq PRN Reason Stop Dose Admin Enoxaparin Sodium 40 mg 07/16/17 10:00 07/17/17 09:44 Lovenox SC 40 mg DAILY [facility] Administration Azithromycin 500 mg/ Sodium 250 mls @ 250 mls/hr 07/16/17 10:00 07/17/17 09: 45 Chloride IVPB 250 mls/hr DAILY [facility] Administration Protocol Ceftriaxone Sodium 2 gm/ 100 mls @ 100 mls/hr 07/17/17 09:00 07/17/17 08:14 Sodium Chloride IVPB 100 mls/hr Q24H [facility] Administration Protocol Levetiracetam 500 mg/ Sodium 105 mls @ 420 mls/hr 07/16/17 17:00 07/17/17 05: 17 Chloride IVPB 420 mls/hr Q12H [facility] Administration Lactated Ringer's 1,000 mls @ 100 mls/hr 07/17/17 09:15 07/17/17 09:44 Lactated Ringer's IV 100 mls/hr .Q10H [facility] Administration Lidocaine HCl 15 ml 07/17/17 16:30 Lidocaine 2% Viscous PO ACHS [facility] Morphine Sulfate 2 mg 07/17/17 11:59 Morphine IVP Q4 PRN Pain, moderate (4-7) Pantoprazole Sodium 40 mg 07/16/17 10:00 07/17/17 09:44 Protonix Inj IVP 40 mg DAILY [facility] Administration Saccharomyces Boulardii 250 mg 07/17/17 18:00 Florastor PO BID [facility] - Patient Studies Lab Studies: Microbiology Studies 07/16/17 06:49 MRSA Culture (Admit) - Final Nose MRSA NOT DETECTED Lab Studies 07/17/17 07/17/17 07/16/17 Range/Units 05:57 05:50 15:56 WBC 10.1 D (4.8-10.8) K/uL RBC 3.51 L (3.80-5.20) Mil/uL Hgb 10.3 L D (11.0-16.0) g/dL Hct 30.4 L (34.0-47.0) % MCV 86.7 D (81.0-99.0) fL MCH 29.4 (27.0-31.0) pg MCHC 33.9 (33.0-37.0) g/dL RDW 14.3 (11.5-14.5) % Plt Count 214 D (130-400) K/uL MPV 8.7 (7.2-11.7) fL Neut % (Auto) 73.5 (50.0-75.0) % Lymph % (Auto) 18.8 L (20.0-40.0) % Nolan % (Auto) 7.2 (0.0-10.0) % Eos % (Auto) 0.2 (0.0-4.0) % Baso % (Auto) 0.3 (0.0-2.0) % Neut # (Auto) 7.5 H (1.8-7.0) K/uL Lymph # (Auto) 1.9 (1.0-4.3) K/uL Nolan # (Auto) 0.7 (0.0-0.8) K/uL Eos # (Auto) 0.0 (0.0-0.7) K/uL Baso # (Auto) 0.0 (0.0-0.2) K/uL Sodium 139 (132-148) mmol/L Potassium 3.4 L (3.6-5.2) mmol/L Chloride 110 H (98-107) mmol/L Carbon Dioxide 19 L (22-30) mmol/L Anion Gap 14 (10-20) BUN 5 L (7-17) mg/dL Creatinine 0.7 (0.7-1.2) mg/dL Est GFR ( Amer) > 60 Est GFR (Non-Af Amer) > 60 Random Glucose 80 (65-105) mg/dL Lactic Acid (0.7-2.1) mmol/L Calcium 7.4 L (8.6-10.4) mg/dl Phosphorus 3.2 (2.5-4.5) mg/dL Magnesium 2.0 (1.6-2.3) mg/dL Total Bilirubin 1.3 (0.2-1.3) mg/dL AST 47 H (14-36) U/L ALT 41 (9-52) U/L Alkaline Phosphatase 70 (38-126) U/L Total Protein 6.2 L (6.3-8.3) g/dL Albumin 3.2 L D (3.5-5.0) g/dL Globulin 3.1 (2.2-3.9) gm/dL Albumin/Globulin Ratio 1.0 (1.0-2.1) Influenza Typ A,B (EIA) Negative for flu a/b (NEGATIVE) 07/16/17 Range/Units 15:36 WBC (4.8-10.8) K/uL RBC (3.80-5.20) Mil/uL Hgb (11.0-16.0) g/dL Hct (34.0-47.0) % MCV (81.0-99.0) fL MCH (27.0-31.0) pg MCHC (33.0-37.0) g/dL RDW (11.5-14.5) % Plt Count (130-400) K/uL MPV (7.2-11.7) fL Neut % (Auto) (50.0-75.0) % Lymph % (Auto) (20.0-40.0) % Nolan % (Auto) (0.0-10.0) % Eos % (Auto) (0.0-4.0) % Baso % (Auto) (0.0-2.0) % Neut # (Auto) (1.8-7.0) K/uL Lymph # (Auto) (1.0-4.3) K/uL Nolan # (Auto) (0.0-0.8) K/uL Eos # (Auto) (0.0-0.7) K/uL Baso # (Auto) (0.0-0.2) K/uL Sodium (132-148) mmol/L Potassium (3.6-5.2) mmol/L Chloride (98-107) mmol/L Carbon Dioxide (22-30) mmol/L Anion Gap (10-20) BUN (7-17) mg/dL Creatinine (0.7-1.2) mg/dL Est GFR ( Amer) Est GFR (Non-Af Amer) Random Glucose (65-105) mg/dL Lactic Acid 1.9 (0.7-2.1) mmol/L Calcium (8.6-10.4) mg/dl Phosphorus (2.5-4.5) mg/dL Magnesium (1.6-2.3) mg/dL Total Bilirubin (0.2-1.3) mg/dL AST (14-36) U/L ALT (9-52) U/L Alkaline Phosphatase (38-126) U/L Total Protein (6.3-8.3) g/dL Albumin (3.5-5.0) g/dL Globulin (2.2-3.9) gm/dL Albumin/Globulin Ratio (1.0-2.1) Influenza Typ A,B (EIA) (NEGATIVE) Laboratory Results - last 24 hr 07/16/17 07/16/17 07/17/17 15:36 15:56 05:50 WBC 10.1 D RBC 3.51 L Hgb 10.3 L D Hct 30.4 L MCV 86.7 D MCH 29.4 MCHC 33.9 RDW 14.3 Plt Count 214 D MPV 8.7 Neut % (Auto) 73.5 Lymph % (Auto) 18.8 L Nolan % (Auto) 7.2 Eos % (Auto) 0.2 Baso % (Auto) 0.3 Neut # (Auto) 7.5 H Lymph # (Auto) 1.9 Nolan # (Auto) 0.7 Eos # (Auto) 0.0 Baso # (Auto) 0.0 Sodium Potassium Chloride Carbon Dioxide Anion Gap BUN Creatinine Est GFR ( Amer) Est GFR (Non-Af Amer) Random Glucose Lactic Acid 1.9 Calcium Phosphorus Magnesium Total Bilirubin AST ALT Alkaline Phosphatase Total Protein Albumin Globulin Albumin/Globulin Ratio Influenza Typ A,B (EIA) Negative for flu a/b 07/17/17 05:57 WBC RBC Hgb Hct MCV MCH MCHC RDW Plt Count MPV Neut % (Auto) Lymph % (Auto) Nolan % (Auto) Eos % (Auto) Baso % (Auto) Neut # (Auto) Lymph # (Auto) Nolan # (Auto) Eos # (Auto) Baso # (Auto) Sodium 139 Potassium 3.4 L Chloride 110 H Carbon Dioxide 19 L Anion Gap 14 BUN 5 L Creatinine 0.7 Est GFR ( Amer) > 60 Est GFR (Non-Af Amer) > 60 Random Glucose 80 Lactic Acid Calcium 7.4 L Phosphorus 3.2 Magnesium 2.0 Total Bilirubin 1.3 AST 47 H ALT 41 Alkaline Phosphatase 70 Total Protein 6.2 L Albumin 3.2 L D Globulin 3.1 Albumin/Globulin Ratio 1.0 Influenza Typ A,B (EIA) Fingerstick Blood Sugar Results: 215 Critical Care Progress Note - Nutrition Nutrition: Nutrition Category Date Time Status Regular Diet [DIET] Diets 07/16/17 Breakfast Active Assessment/Plan - Assessment and Plan (Free Text) Assessment: Patient is a 36 year old female with past medical history of gastritis presented to the ED with 2 days of nausea, vomiting, abdominal pain; also with seizure activity, traumatic shoulder injury, sepsis. Admitted to the ICU for closer monitoring. Neurology: -Patient is AAOX3, following commands, No more seizures -Keppra 500mg IV Q12H, Will check Keppra level -Went for MRI yesterday which was negative -Will order MRA of the head -Tongue laceration: Lidocaine 2% Viscous 15 ml PO Swish and Spit ACHS -Neurology on consult, Dr Hilton, help appreciated -Plan to downgrade to Med/surg today pending MRA results Cardiology: -Patient is hemodynamically stable -Echo showed Trace tricuspid regurg Respiratory: -Patient with RLL pneumonia on CT chest and CXR -Antibiotics: Rocephin and Azithromycin -Influenza negative -F/U mycoplasma, legionella, strep pneumonia Renal: -Lactic acidosis secondary to sepsis, now normalized -Potassium 3.4, repleted -Continue to monitor electrolytes ID: -Patient presented with severe sepsis, lactate normalized -Presumed source is community acquired pneumonia/aspiration pneumonia -Antibiotics: Rocephin 2gm IV daily and Azithromycin 500mg IV daily -Continue Florastor 250 mg PO 2x/day -F/U blood cultures, urine cultures -Patient recently came from [facility] Musculoskeletal: -Patient presented with traumatic shoulder injury -Closed reduction was performed in the ER -Shoulder XRAY showed acute comminuted displaced fracture in greater tuberosity of the humerus -CT shoulder ordered -Pain control: Morphin 2mg Q4H prn pain -Ortho on consult, help appreciated GI/DVT ppx: -Lovenox 40mg SC daily -No GI ppx indicated at this time <Sha Dash - Last Filed: 07/17/17 17:24> CCU Objective - Vital Signs / Intake & Output Vital Signs (Last 4 hours): Vital Signs Temp 07/17/17 16:00 99.6 F Intake and Output (Last 8hrs): Intake & Output 07/17/17 07/17/17 07/17/17 06:59 14:59 22:59 Intake Total 1480 1450 300 Output Total 500 650 400 Balance 980 800 -100 Weight 183 lb 11.2 oz Intake: Intake, IV Amount 1300 1050 300 Left Upper arm 1300 1050 300 Oral 180 400 Output: Urine 500 650 400 Urine, Voided 500 650 400 Other: # Voids Urine, Voided 1 1 1 - Medications Active Medications: Active Medications Generic Name Dose Route Start Last Admin Trade Name Freq PRN Reason Stop Dose Admin Enoxaparin Sodium 40 mg 07/16/17 10:00 07/17/17 09:44 Lovenox SC 40 mg DAILY [facility] Administration Azithromycin 500 mg/ Sodium 250 mls @ 250 mls/hr 07/16/17 10:00 07/17/17 09: 45 Chloride IVPB 250 mls/hr DAILY [facility] Administration Protocol Levetiracetam 500 mg/ Sodium 105 mls @ 420 mls/hr 07/16/17 17:00 07/17/17 05: 17 Chloride IVPB 420 mls/hr Q12H [facility] Administration Lactated Ringer's 1,000 mls @ 100 mls/hr 07/17/17 09:15 07/17/17 09:44 Lactated Ringer's IV 100 mls/hr .Q10H [facility] Administration Piperacillin Sod/Tazobactam Sod 3.375 gm in 50 mls @ 200 mls/hr 07/17/17 18: 00 Zosyn 3.375 Gm Iv Premix IVPB Q6H [facility] Protocol Morphine Sulfate 2 mg 07/17/17 12:00 07/17/17 12:37 Morphine IVP 2 mg Q4 PRN Administration Pain, moderate (4-7) Potassium Chloride 40 meq 07/17/17 17:30 K-Dur 20 Meq Er Tab PO 07/18/17 11:31 Q6H [facility] Saccharomyces Boulardii 250 mg 07/17/17 18:00 Florastor PO BID [facility] - Patient Studies Lab Studies: Microbiology Studies 07/16/17 06:49 MRSA Culture (Admit) - Final Nose MRSA NOT DETECTED Lab Studies 07/17/17 07/17/17 07/17/17 Range/Units 15:24 05:57 05:50 WBC 10.1 D (4.8-10.8) K/uL RBC 3.51 L (3.80-5.20) Mil/uL Hgb 10.3 L D (11.0-16.0) g/dL Hct 30.4 L (34.0-47.0) % MCV 86.7 D (81.0-99.0) fL MCH 29.4 (27.0-31.0) pg MCHC 33.9 (33.0-37.0) g/dL RDW 14.3 (11.5-14.5) % Plt Count 214 D (130-400) K/uL MPV 8.7 (7.2-11.7) fL Neut % (Auto) 73.5 (50.0-75.0) % Lymph % (Auto) 18.8 L (20.0-40.0) % Nolan % (Auto) 7.2 (0.0-10.0) % Eos % (Auto) 0.2 (0.0-4.0) % Baso % (Auto) 0.3 (0.0-2.0) % Neut # (Auto) 7.5 H (1.8-7.0) K/uL Lymph # (Auto) 1.9 (1.0-4.3) K/uL Nolan # (Auto) 0.7 (0.0-0.8) K/uL Eos # (Auto) 0.0 (0.0-0.7) K/uL Baso # (Auto) 0.0 (0.0-0.2) K/uL Sodium 139 (132-148) mmol/L Potassium 3.4 L (3.6-5.2) mmol/L Chloride 110 H (98-107) mmol/L Carbon Dioxide 19 L (22-30) mmol/L Anion Gap 14 (10-20) BUN 5 L (7-17) mg/dL Creatinine 0.7 (0.7-1.2) mg/dL Est GFR ( Amer) > 60 Est GFR (Non-Af Amer) > 60 Random Glucose 80 (65-105) mg/dL Calcium 7.4 L (8.6-10.4) mg/dl Phosphorus 3.2 (2.5-4.5) mg/dL Magnesium 2.0 (1.6-2.3) mg/dL Total Bilirubin 1.3 (0.2-1.3) mg/dL AST 47 H (14-36) U/L ALT 41 (9-52) U/L Alkaline Phosphatase 70 (38-126) U/L Total Protein 6.2 L (6.3-8.3) g/dL Albumin 3.2 L D (3.5-5.0) g/dL Globulin 3.1 (2.2-3.9) gm/dL Albumin/Globulin Ratio 1.0 (1.0-2.1) Urine Opiates Screen Negative (NEGATIVE) Urine Methadone Screen Negative (NEGATIVE) Ur Barbiturates Screen Negative (NEGATIVE) Ur Phencyclidine Scrn Negative (NEGATIVE) Ur Amphetamines Screen Negative (NEGATIVE) U Benzodiazepines Scrn Negative (NEGATIVE) U Oth Cocaine Metabols Negative (NEGATIVE) U Cannabinoids Screen Negative (NEGATIVE) Laboratory Results - last 24 hr 07/17/17 07/17/17 07/17/17 05:50 05:57 15:24 WBC 10.1 D RBC 3.51 L Hgb 10.3 L D Hct 30.4 L MCV 86.7 D MCH 29.4 MCHC 33.9 RDW 14.3 Plt Count 214 D MPV 8.7 Neut % (Auto) 73.5 Lymph % (Auto) 18.8 L Nolan % (Auto) 7.2 Eos % (Auto) 0.2 Baso % (Auto) 0.3 Neut # (Auto) 7.5 H Lymph # (Auto) 1.9 Nolan # (Auto) 0.7 Eos # (Auto) 0.0 Baso # (Auto) 0.0 Sodium 139 Potassium 3.4 L Chloride 110 H Carbon Dioxide 19 L Anion Gap 14 BUN 5 L Creatinine 0.7 Est GFR ( Amer) > 60 Est GFR (Non-Af Amer) > 60 Random Glucose 80 Calcium 7.4 L Phosphorus 3.2 Magnesium 2.0 Total Bilirubin 1.3 AST 47 H ALT 41 Alkaline Phosphatase 70 Total Protein 6.2 L Albumin 3.2 L D Globulin 3.1 Albumin/Globulin Ratio 1.0 Urine Opiates Screen Negative Urine Methadone Screen Negative Ur Barbiturates Screen Negative Ur Phencyclidine Scrn Negative Ur Amphetamines Screen Negative U Benzodiazepines Scrn Negative U Oth Cocaine Metabols Negative U Cannabinoids Screen Negative Critical Care Progress Note - Nutrition Nutrition: Nutrition Category Date Time Status Regular Diet [DIET] Diets 07/16/17 Breakfast Active Assessment/Plan - Assessment and Plan (Free Text) Assessment: Above resident note reviewed and verified. Patient with h/o seizures after , h/o no follow up presents to [facility] with dx of seizures. -continue keppra -r/o sagital vein thrombosis, MRV/MRA -?aspiration: switcht from ceftriaxone to zosyn -aspiration precautions -right shoulder: continue sling and obtain orthopedic surgery eval -no central line, no foleys -remains hemodynamically stable -continue oral diet if no anticipated procedures. - Date & Time Date: 07/17/17 Time: 11:35
--- NOTE | 2017-07-17 12:11 | CT ---
PROCEDURE: CT right shoulder HISTORY: right shoulder fracture s/p closed reduction COMPARISON: Not available TECHNIQUE: 2.5 mm contiguous axial sections were acquired through the right shoulder. Sagittal and coronal images were reformatted from the axial data. FINDINGS: The patient is status post close reduction of anterior dislocation seen on 07/16/2017. There is extensive comminuted fracture of the greater tuberosity. There is no humeral neck fracture. There is displacement of some greater tuberosity fracture fragments. The humeral head is normally situated in relation to the glenoid. There is a very small nondisplaced fracture noted involving the anterior inferior glenoid, consistent with bony Bankart deformity. There is additional a amorphous focal dens adjacent to the anterior glenoid which may have resulted from an anterior glenoid fracture or may represent chronic soft tissue calcification. There is no other fracture identified. There is no significant soft tissue abnormality seen. IMPRESSION: Comminuted displaced greater tuberosity fracture. Successful closed reduction of anterior glenohumeral dislocation. Probable tiny bony Bankart lesion.
[2017-07-17 15:50] LABS: BARBITURATES, UR NEGATIVE (NEGATIVE); BENZODIAZEPINES, UR NEGATIVE (NEGATIVE); OPIATES, UR NEGATIVE (NEGATIVE); PHENCYCLIDINE, UR NEGATIVE (NEGATIVE)
--- NOTE | 2017-07-17 16:15 | MRI ---
PROCEDURE: Magnetic Resonance Angiography Brain HISTORY: s/p seizure COMPARISON: None available. TECHNIQUE: 3D time of flight MR angiography of the intracranial arteries was performed. Rotating maximum intensity projection images were generated. FINDINGS: INTERNAL CAROTID ARTERIES: The distal skullbase bilateral ICA segments are obscured by our bony artifact but appear patent nevertheless. The petrous, and supraclinoid segments are bilaterally widely patient. The bilateral cavernous segments appear widely patent as well, however, bilateral infundibuli related to the origins of the bilateral ophthalmic arteries are favored over small aneurysms. Correlation with CT angiogram of the brain is recommended. ANTERIOR CEREBRAL ARTERIES: Unremarkable. A1 and A2 segments are widely patent. Smaller distal branches unremarkable, as visualized. MIDDLE CEREBRAL ARTERIES: Unremarkable. M1 and M2 segments are widely patent. Perisylvian branches grossly symmetric. POSTERIOR CIRCULATION: Basilar Artery: Unremarkable. Distal Vertebral Arteries: Unremarkable. Posterior Cerebral Arteries: There is a slight beaded pattern appreciated related to the right greater than left posterior cerebral arteries this may reflect a limited fibromuscular dysplasia type pattern. Posterior Inferior Cerebellar Arteries: Unremarkable. ANEURYSM/ VASCULAR MALFORMATIONS: None. OTHER FINDINGS: None. 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 Further, bilateral infundibuli are favored over small, bilateral ophthalmic artery aneurysms. Follow-up contrast CTA of the brain may be useful for additional characterization.
[2017-07-17] MEDS: Saccharomyces Boulardi 250 mg Cap PO SCH (17:22)
[2017-07-17] MEDS: Potassium Chloride 20 mEq ER Tab PO SCH ×2 (17:41→23:18)
[2017-07-17] MEDS: Piperacill/Tazo 3.375gm in Dex 3.375 GM/50 ML BAG IVPB SCH (17:45)
[2017-07-18] MEDS: Piperacill/Tazo 3.375gm in Dex 3.375 GM/50 ML BAG IVPB SCH ×4 (00:06→17:47)
[2017-07-18] MEDS: Lactated Ringer's 1,000 ML IV SCH ×3 (02:03→17:50)
[2017-07-18] MEDS: levETIRAcetam 500 MG in Sodium Chloride 0.9% 100 ML IVPB SCH (05:44)
[2017-07-18] MEDS: Potassium Chloride 20 mEq ER Tab PO SCH (05:45)
[2017-07-18 06:21] LABS: BASO % 0.4 % (0.0-2.0); EOS # 0.1 K/uL (0.0-0.7); EOS % 0.9 % (0.0-4.0); HEMOGLOBIN 11.3 g/dL (11.0-16.0); LYMPH # 2.3 K/uL (1.0-4.3); LYMPH % 22.4 % (20.0-40.0); MEAN CELL VOLUME 87.5 fL (81.0-99.0); MEAN CORPUSCULAR HEMOGLOBIN 29.8 pg (27.0-31.0); MONO # 0.9 K/uL (0.0-0.8); MONO % 8.8 % (0.0-10.0); NEUT # 6.8 K/uL (1.8-7.0); NEUT % 67.5 % (50.0-75.0); NRBC % 0.1 % (0.0-2.0); RBC 3.79 Mil/uL (3.80-5.20); RED CELL DISTRIBUTION WIDTH 14.6 % (11.5-14.5); WHITE BLOOD COUNT 10.1 K/uL (4.8-10.8)
[2017-07-18 06:39] LABS: ALBUMIN 3.7 g/dL (3.5-5.0); ALT/SGPT 46 U/L (9-52); AST/SGOT 86 U/L (14-36); BLOOD UREA NITROGEN 6 mg/dL (7-17); GFR AFRICAN-AMERICAN > 60; GFR NON-AFRICAN AMERICAN > 60
--- NOTE | 2017-07-18 06:48 | CP.PCM.PN ---
Subjective - Date & Time of Evaluation Date of Evaluation: 07/18/17 Time of Evaluation: 06:45 - Subjective Subjective: Ms. Celis was seen and examined at the bedside at the bedside in ICU. She is alert, oriented in all spheres. He denies any headache, dizziness, lightheadedness, blurred vision, diplopia, or any seizure-like activity. She is able to follow simple commands with right arm with minimal movement due to fracture and left arm due to swelling. She is able to move bilateral lower extremities spontaneously. MRA of the head showed borderline fibromuscular dysplasia pattern involving the right greater than left posterior arteries. Further, bilateral infundibuli are favored over bilateral opthalmic artery aneurysms. There was no untoward events overnight. Objective - Vital Signs/Intake and Output Vital Signs (last 24 hours): Temp Pulse Resp BP Pulse Ox 98.2 F 82 19 117/74 100 07/18/17 00:00 07/17/17 21:23 07/17/17 18:00 07/17/17 18:00 07/17/17 18:00 Intake and Output: 07/17/17 07/18/17 18:59 06:59 Intake Total 2125 980 Output Total 1600 500 Balance 525 480 - Medications Medications: Current Medications Enoxaparin Sodium (Lovenox) 40 mg SC DAILY [facility] Last Admin: 07/17/17 09:44 Dose: 40 mg Azithromycin 500 mg/ Sodium (Chloride) 250 mls @ 250 mls/hr IVPB DAILY [facility] PRN Reason: Protocol Last Admin: 07/17/17 09:45 Dose: 250 mls/hr Levetiracetam 500 mg/ Sodium (Chloride) 105 mls @ 420 mls/hr IVPB Q12H [facility] Last Admin: 07/18/17 05:44 Dose: 420 mls/hr Lactated Ringer's (Lactated Ringer's) 1,000 mls @ 100 mls/hr IV .Q10H [facility] Last Admin: 07/18/17 04:39 Dose: Not Given Piperacillin Sod/Tazobactam Sod (Zosyn 3.375 Gm Iv Premix) 3.375 gm in 50 mls @ 200 mls/hr IVPB Q6H [facility] PRN Reason: Protocol Last Admin: 07/18/17 05:47 Dose: 200 mls/hr Morphine Sulfate (Morphine) 2 mg IVP Q4 PRN PRN Reason: Pain, moderate (4-7) Last Admin: 07/17/17 20:30 Dose: 2 mg Potassium Chloride (K-Dur 20 Meq Er Tab) 40 meq PO Q6H [facility] Stop: 07/18/17 11:31 Last Admin: 07/18/17 05:45 Dose: 40 meq Saccharomyces Boulardii (Florastor) 250 mg PO BID [facility] Last Admin: 07/17/17 17:22 Dose: 250 mg - Labs Labs: 07/18/17 06:17 07/18/17 06:17 - Constitutional Appears: No Acute Distress - Head Exam Head Exam: NORMAL INSPECTION - Neurological Exam Neurological Exam: Alert, Awake, Oriented x3 Neuro motor strength exam: Left Upper Extremity: 3, Right Upper Extremity: 3, Left Lower Extremity: 5, Right Lower Extremity: 5 Additional comments: She is alert, oriented x3, follows simple commands. Sensation remains intact Assessment and Plan (1) Seizures Assessment & Plan: Case discussed with Dr. Jorgensen, continue all current medical regimen. Recommend CTA of the head and neck and treat any underlying electrolyte abnormalities including liver enzymes. Status: Acute
[2017-07-18] MEDS ORDERED: Influenza Vaccine 60 mcg/0.5 mL SYR (4YR UP) IM ONE (10:00)
--- NOTE | 2017-07-18 10:02 | CP.PCM.PN ---
Subjective - Date & Time of Evaluation Date of Evaluation: 07/18/17 Time of Evaluation: 10:01 - Subjective Subjective: Patient says pain in her right shoulder is much better today. Denies numbness/ tingling. Objective - Vital Signs/Intake and Output Vital Signs (last 24 hours): Temp Pulse Resp BP Pulse Ox 99.1 F 83 20 114/72 99 07/18/17 08:00 07/18/17 08:00 07/18/17 08:00 07/18/17 08:00 07/18/17 08:00 Intake and Output: 07/18/17 07/18/17 06:59 18:59 Intake Total 980 Output Total 500 Balance 480 - Medications Medications: Current Medications Enoxaparin Sodium (Lovenox) 40 mg SC DAILY [facility] Last Admin: 07/17/17 09:44 Dose: 40 mg Azithromycin 500 mg/ Sodium (Chloride) 250 mls @ 250 mls/hr IVPB DAILY [facility] PRN Reason: Protocol Last Admin: 07/17/17 09:45 Dose: 250 mls/hr Lactated Ringer's (Lactated Ringer's) 1,000 mls @ 100 mls/hr IV .Q10H [facility] Last Admin: 07/18/17 04:39 Dose: Not Given Piperacillin Sod/Tazobactam Sod (Zosyn 3.375 Gm Iv Premix) 3.375 gm in 50 mls @ 200 mls/hr IVPB Q6H [facility] PRN Reason: Protocol Last Admin: 07/18/17 05:47 Dose: 200 mls/hr Levetiracetam (Keppra) 750 mg PO Q12H [facility] Morphine Sulfate (Morphine) 2 mg IVP Q4 PRN PRN Reason: Pain, moderate (4-7) Last Admin: 07/17/17 20:30 Dose: 2 mg Potassium Chloride (K-Dur 20 Meq Er Tab) 40 meq PO Q6H [facility] Stop: 07/18/17 11:31 Last Admin: 07/18/17 05:45 Dose: 40 meq Saccharomyces Boulardii (Florastor) 250 mg PO BID [facility] Last Admin: 07/17/17 17:22 Dose: 250 mg - Labs Labs: 07/18/17 06:17 07/18/17 06:17 - Extremities Exam Additional comments: RUE: +ROM fingers/thumb/wrist 5/5 strength, sensation intact to rad/med/ulnar/ ax n. +Radial pulse, immob intact , noted swelling Assessment and Plan (1) Closed fracture dislocation of right shoulder joint Assessment & Plan: Case d/w Dr. Dash patient with pneumonia on admission, likely aspiration, will need to delay surgery for at least 7 days prior to general anesthesia shoulder immobilizer ice pain medication PT/OT NWB RUE patient to f/u Dr. Cai office upon discharge, call for appointment to schedule arthroscopy/ORIF as outpatient discussed at length with patient and regarding need for delay in surgery , understand and agree to plan d/w Dr. Cai, agrees with above Status: Acute
[2017-07-18] MEDS: Saccharomyces Boulardi 250 mg Cap PO SCH ×2 (10:13→17:47)
[2017-07-18] MEDS: Azithromycin 500 MG in Sodium Chloride 0.9% 250 ML IVPB SCH (10:13)
[2017-07-18] MEDS ORDERED: Iohexol 350mg/ml 100 ML ONE (10:55)
--- NOTE | 2017-07-18 11:10 | CP.PCM.PN ---
Subjective - Date & Time of Evaluation Date of Evaluation: 07/18/17 Time of Evaluation: 10:40 - Subjective Subjective: Hospitalist Progress Note Patient was seen and examined at 10:40 AM 07/18/17 ICU Bed 18 36 year old female who was admitted morning of 07/16/17 s/p fall and was found to have Seizure, Right Shoulder Dislocation, and RLL Pneumonia. Her Right Shoulder was reduced in the emergency room and she was then admitted to the ICU for further treatment and evaluation. Upon ROS: Right Shoulder pain Right lateral tongue pain Moved her bowels and they were normal NO chest pain NO SOB/Cough/Wheezing NO abdominal pain NO n/v/d/c NO other complaints Exam: General: AAOX3, NAD HEENT: NCA, EOMI, PERRLA, NO cervical/supraclavicular/submandibular lymphadenopathy, NO pharyngeal erythema/exudate, Nasal Turbinates are nonerythematous/nonedematous, Oral Mucosa is moist, Right Lateral Tongue Laceration and Left Lateral Tongue Laceration starting to scab over Cardio: NS1 and NS2, NO M/R/G Resp: CTA B/L, Faint Bibasilar Rales on exam GI: BSx4, Soft, NT, NO HSM, NO guarding/rebound tenderness Ext: Pulses are strong and equal, Capillary Refill is 2 seconds, NO edema, Right Arm in Flexion in Sling Neuro: CN II through XII are grossly intact Assessment and Plan: 1). Sepsis Secondary to RLL Pneumonia CT Chest 07/16/17 showed evidence of RLL Azithromycin 500 mg IV 1x/day (07/16/17) Ceftriaxone 2 gm IV Q24H (07/16/17) Blood Culture is negative to date Urine Culture shows NO growth F/U Mycoplasma IgG, IgM F/U Urine Strep Ag Urine Legionella is negative Rapid Influenza is negative Status: Acute 2). 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 Hilton Status: Acute 3). Right Shoulder Dislocation/Right Humerus Fracture Reduced in ER at the time of admission Right Shoulder CT 07/17/17 shows communuted displaced greater tuberosity fracture , successful closed reduction of anterior glenohumeral dislocation Due to RLL Pneumonia, patient is not cleared for surgery requiring general anesthesia. She will need to complete antibiotic course and then follow up with Dr. Cai in his office to schedule surgery. She will need to keep right shoulder immobilizer on at all times Orthopedics Dr. Cai Status: Acute 4). Tongue Laceration Secondary to the seizure Lidocaine 2% Viscous 15 ml PO Swish and Spit ACHS Status: Acute 5). Prohylaxis Lovenox 40 mg SC 1x/day Protonix 40 mg IV 1x/day Florastor 250 mg PO 2x/day Regular Diet Status: Acute Gómez Dash D.O. Objective - Vital Signs/Intake and Output Vital Signs (last 24 hours): Temp Pulse Resp BP Pulse Ox 99.1 F 83 20 114/72 99 07/18/17 08:00 07/18/17 08:00 07/18/17 08:00 07/18/17 08:00 07/18/17 08:00 Intake and Output: 07/18/17 07/18/17 06:59 18:59 Intake Total 980 Output Total 500 Balance 480 - Medications Medications: Current Medications Enoxaparin Sodium (Lovenox) 40 mg SC DAILY [facility] Last Admin: 07/17/17 09:44 Dose: 40 mg Azithromycin 500 mg/ Sodium (Chloride) 250 mls @ 250 mls/hr IVPB DAILY [facility] PRN Reason: Protocol Last Admin: 07/18/17 10:13 Dose: 250 mls/hr Lactated Ringer's (Lactated Ringer's) 1,000 mls @ 100 mls/hr IV .Q10H [facility] Last Admin: 07/18/17 04:39 Dose: Not Given Piperacillin Sod/Tazobactam Sod (Zosyn 3.375 Gm Iv Premix) 3.375 gm in 50 mls @ 200 mls/hr IVPB Q6H [facility] PRN Reason: Protocol Last Admin: 07/18/17 05:47 Dose: 200 mls/hr Levetiracetam (Keppra) 750 mg PO Q12H [facility] Last Admin: 07/18/17 10:54 Dose: 750 mg Morphine Sulfate (Morphine) 2 mg IVP Q4 PRN PRN Reason: Pain, moderate (4-7) Last Admin: 07/17/17 20:30 Dose: 2 mg Saccharomyces Boulardii (Florastor) 250 mg PO BID [facility] Last Admin: 07/18/17 10:13 Dose: 250 mg - Labs Labs: 07/18/17 06:17 07/18/17 06:17
[2017-07-18] MEDS ORDERED: Enoxaparin 40 mg Syringe SC ONE (12:36)
--- NOTE | 2017-07-18 15:52 | CT ---
PROCEDURE: CTA HEAD AND NECK WITH CONTRAST HISTORY: follow up MRI, r/o bilateral ophthalmic artery ane COMPARISON: MRA head without contrast from 07/15 2017. TECHNIQUE: Initial noncontrast head CT was performed. Subsequently, CT angiogram of the head and neck were performed after the intravenous administration of 80 mL of Omnipaque 350. Contiguous 1.5mm thick images were obtained in the axial plane of the neck. 2-D coronal and sagittal MPR images were obtained. Imaging postprocessing was performed with 3-D images also obtained. A delayed contrast head CT was also obtained. This CT exam was performed using one or more of the following dose reduction techniques: Automated exposure control, adjustment of the mA and/or kV according to patient size, and/or use of iterative reconstruction technique. Contrast dose: 100 mL Omnipaque 350 Radiation dose: Total exam DLP = 565.47 mGy-cm. FINDINGS: HEAD: Right: The intracranial internal carotid artery, and anterior and middle cerebral arteries are widely patent. Left: The intracranial internal carotid artery, and anterior and middle cerebral arteries are widely patent. Posterior circulation: The visualized intracranial vertebral arteries, basilar artery and posterior cerebral arteries are widely patent. There is no endoluminal filling defect to suggest thrombus. There is no intracranial saccular aneurysm. NECK: There is a three vessel aortic arch. There is no stenosis at the origins of the great vessels at the level of the aortic arch. Right Carotid: On the right, the common carotid, internal carotid and external carotid arteries are widely patent. There is no hemodynamically significant stenosis in the internal carotid artery by NASCET criteria. Left Carotid: On the left, the common carotid, internal carotid and external carotid arteries are widely patent. There is no hemodynamically significant stenosis in the internal carotid artery by NASCET criteria. The vertebral arteries are widely patent. The visualized soft tissues of the neck are normal. The visualized brain and cervical spine are within normal limits. The lung apices are clear. IMPRESSION: Normal CTA of the head and neck. No evidence of occlusion, definite significant stenosis or saccular aneurysm.
[2017-07-18] MEDS: Morphine 4 MG/ML VIAL IVP PRN (21:48)
--- NOTE | 2017-07-18 22:45 | CARD ---
APPROVED REPORT EKG Measurement Heart [id number] ND [id number] <Conclusion> Sinus tachycardia Nonspecific ST abnormality Abnormal ECG
[2017-07-19] MEDS: Lactated Ringer's 1,000 ML IV SCH ×2 (01:29→14:41)
[2017-07-19] MEDS: Piperacill/Tazo 3.375gm in Dex 3.375 GM/50 ML BAG IVPB SCH ×5 (01:39→23:23)
[2017-07-19 06:28] LABS: BASO % 0.5 % (0.0-2.0); EOS # 0.1 K/uL (0.0-0.7); EOS % 2.3 % (0.0-4.0); HEMOGLOBIN 9.1 g/dL (11.0-16.0); LYMPH # 1.5 K/uL (1.0-4.3); LYMPH % 23.2 % (20.0-40.0); MEAN CELL VOLUME 87.8 fL (81.0-99.0); MEAN CORPUSCULAR HEMOGLOBIN 29.7 pg (27.0-31.0); MEAN CORPUSCULAR HGB CONC 33.9 g/dL (33.0-37.0); MEAN PLATELET VOLUME 9.4 fL (7.2-11.7); MONO # 0.4 K/uL (0.0-0.8); MONO % 6.5 % (0.0-10.0); NEUT # 4.2 K/uL (1.8-7.0); NEUT % 67.5 % (50.0-75.0); RBC 3.05 Mil/uL (3.80-5.20); WHITE BLOOD COUNT 6.3 K/uL (4.8-10.8)
[2017-07-19 06:39] LABS: ALBUMIN 3.8 g/dL (3.5-5.0); ALT/SGPT 43 U/L (9-52); AST/SGOT 102 U/L (14-36); BLOOD UREA NITROGEN 6 mg/dL (7-17); CALCIUM 8.8 mg/dl (8.6-10.4); GFR AFRICAN-AMERICAN > 60; GFR NON-AFRICAN AMERICAN > 60
[2017-07-19 07:43] VITALS: RESP 18
--- NOTE | 2017-07-19 08:54 | CP.PCM.PN ---
<Jacek Su - Last Filed: 07/19/17 09:38> Subjective - Date & Time of Evaluation Date of Evaluation: 07/19/17 Time of Evaluation: 08:51 - Subjective Subjective: PGY-[address] Dash's ervice: Pt seen and examined at bedside. Nursing reports no acute events overnight. Objective - Vital Signs/Intake and Output Vital Signs (last 24 hours): Temp Pulse Resp BP Pulse Ox 98.6 F 60 18 106/66 100 07/19/17 08:00 07/19/17 08:00 07/19/17 08:00 07/19/17 08:00 07/19/17 08:00 Intake and Output: 07/19/17 07/19/17 06:59 18:59 Intake Total 100 1400 Output Total 600 Balance 100 800 - Medications Medications: Current Medications Enoxaparin Sodium (Lovenox) 40 mg SC DAILY [facility] Last Admin: 07/17/17 09:44 Dose: 40 mg Azithromycin 500 mg/ Sodium (Chloride) 250 mls @ 250 mls/hr IVPB DAILY [facility] PRN Reason: Protocol Last Admin: 07/18/17 10:13 Dose: 250 mls/hr Lactated Ringer's (Lactated Ringer's) 1,000 mls @ 100 mls/hr IV .Q10H [facility] Last Admin: 07/19/17 01:29 Dose: Not Given Piperacillin Sod/Tazobactam Sod (Zosyn 3.375 Gm Iv Premix) 3.375 gm in 50 mls @ 200 mls/hr IVPB Q6H [facility] PRN Reason: Protocol Last Admin: 07/19/17 06:34 Dose: 200 mls/hr Levetiracetam (Keppra) 750 mg PO Q12H [facility] Last Admin: 07/18/17 21:32 Dose: 750 mg Morphine Sulfate (Morphine) 2 mg IVP Q4 PRN PRN Reason: Pain, moderate (4-7) Last Admin: 07/18/17 21:48 Dose: 2 mg Saccharomyces Boulardii (Florastor) 250 mg PO BID [facility] Last Admin: 07/18/17 17:47 Dose: 250 mg - Labs Labs: 07/19/17 06:15 07/19/17 06:14 - Constitutional Appears: Non-toxic, No Acute Distress - Head Exam Head Exam: ATRAUMATIC, NORMAL INSPECTION - Eye Exam Eye Exam: EOMI Pupil Exam: PERRL - ENT Exam ENT Exam: Mucous Membranes Moist - Respiratory Exam Respiratory Exam: Clear to Ausculation Bilateral, NORMAL BREATHING PATTERN - Cardiovascular Exam Cardiovascular Exam: REGULAR RHYTHM, +S1, +S2 - GI/Abdominal Exam GI & Abdominal Exam: Soft, Normal Bowel Sounds. absent: Tenderness - Extremities Exam Extremities Exam: Normal Inspection. absent: Pedal Edema Additional comments: Rt arm in sling - Back Exam Back Exam: absent: CVA tenderness (L), CVA tenderness (R) - Neurological Exam Neurological Exam: Alert, Awake, Oriented x3 - Psychiatric Exam Psychiatric exam: Normal Affect, Normal Mood - Skin Skin Exam: Normal Color, Warm Assessment and Plan - Assessment and Plan (Free Text) Plan: Sepsis Secondary to RLL Pneumonia CT Chest 07/16/17 showed evidence of RLL Azithromycin 500 mg IV 1x/day (07/16/17) Ceftriaxone 2 gm IV Q24H (07/16/17) Blood Culture is negative to date Urine Culture shows NO growth F/U Mycoplasma IgG, IgM F/U Urine Strep Ag Urine Legionella is negative Rapid Influenza is negative Seizure Keppra 500 mg PO 2x/day CT Head 07/16/17: NO acute findings Brain MRI 07/16/17: normal pre and post contrast enhanced brain MRA Brain 07/17/17 shows borderline fibromuscular dysplasia pattern involving 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 No evidence of ophthalmic artery aneurysms Neurology Dr. Hilton Right Shoulder Dislocation/Right Humerus Fracture Reduced in ER at the time of admission Right Shoulder CT 07/17/17 shows communuted displaced greater tuberosity fracture , successful closed reduction of anterior glenohumeral dislocation Due to RLL Pneumonia, patient is not cleared for surgery requiring general anesthesia. She will need to complete antibiotic course and then follow up with Dr. Cai in his office to schedule surgery. She will need to keep right shoulder immobilizer on at all times Orthopedics Dr. Cai Tongue Laceration Secondary to the seizure Lidocaine 2% Viscous 15 ml PO Swish and Spit ACHS Prophylaxis Lovenox 40 mg SC 1x/day Protonix 40 mg IV 1x/day Florastor 250 mg PO 2x/day Regular Diet <Gómez Dash - Last Filed: 07/19/17 14:41> Objective - Vital Signs/Intake and Output Vital Signs (last 24 hours): Temp Pulse Resp BP Pulse Ox 98.4 F 60 18 106/66 100 07/19/17 12:00 07/19/17 10:00 07/19/17 08:00 07/19/17 08:00 07/19/17 08:00 Intake and Output: 07/19/17 07/19/17 06:59 18:59 Intake Total 100 2200 Output Total 600 Balance 100 1600 - Medications Medications: Current Medications Enoxaparin Sodium (Lovenox) 40 mg SC DAILY [facility] Last Admin: 07/19/17 09:10 Dose: 40 mg Azithromycin 500 mg/ Sodium (Chloride) 250 mls @ 250 mls/hr IVPB DAILY [facility] PRN Reason: Protocol Last Admin: 07/19/17 09:11 Dose: 250 mls/hr Lactated Ringer's (Lactated Ringer's) 1,000 mls @ 100 mls/hr IV .Q10H [facility] Last Admin: 07/19/17 01:29 Dose: Not Given Piperacillin Sod/Tazobactam Sod (Zosyn 3.375 Gm Iv Premix) 3.375 gm in 50 mls @ 200 mls/hr IVPB Q6H [facility] PRN Reason: Protocol Last Admin: 07/19/17 11:42 Dose: 200 mls/hr Levetiracetam (Keppra) 750 mg PO Q12H [facility] Last Admin: 07/19/17 09:10 Dose: 750 mg Morphine Sulfate (Morphine) 2 mg IVP Q4 PRN PRN Reason: Pain, moderate (4-7) Last Admin: 07/18/17 21:48 Dose: 2 mg Saccharomyces Boulardii (Florastor) 250 mg PO BID [facility] Last Admin: 07/19/17 09:10 Dose: 250 mg - Labs Labs: 07/19/17 06:15 07/19/17 06:14 Attending/Attestation - Attestation I have personally seen and examined this patient.: Yes I have fully participated in the care of the patient.: Yes I have reviewed all pertinent clinical information, including history, physical exam and plan: Yes Notes (Text): 07/19/17 14:34 Hospitalist Progress Note Patient was seen and examined at 2:20 PM 07/19/17 ICU Bed 18 36 year old female who was admitted morning of 07/16/17 s/p fall and was found to have Seizure, Right Shoulder Dislocation, and RLL Pneumonia. Her Right Shoulder was reduced in the emergency room and she was then admitted to the ICU for further treatment and evaluation. Upon ROS: Right Shoulder pain comes and goes but much better than upon presentation Right lateral tongue pain improving Moved her bowels and they were normal NO chest pain NO SOB/Cough/Wheezing NO abdominal pain NO n/v/d/c, NO black or bloody bowel movement NO other complaints Exam: General: AAOX3, NAD HEENT: NCA, EOMI, PERRLA, NO cervical/supraclavicular/submandibular lymphadenopathy, NO pharyngeal erythema/exudate, Nasal Turbinates are nonerythematous/nonedematous, Oral Mucosa is moist, Right Lateral Tongue Laceration and Left Lateral Tongue Laceration starting to scab over Cardio: NS1 and NS2, NO M/R/G Resp: CTA B/L, Faint Bibasilar Rales on exam GI: BSx4, Soft, NT, NO HSM, NO guarding/rebound tenderness Ext: Pulses are strong and equal, Capillary Refill is 2 seconds, NO edema, Right Arm in Flexion in Sling Neuro: CN II through XII are grossly intact Assessment and Plan: 1). Sepsis Secondary to RLL Pneumonia CT Chest 07/16/17 showed evidence of RLL Azithromycin 500 mg IV 1x/day (07/16/17) Zosyn 3.375 gm IV Q6H (07/18/17) Blood Culture is negative to date Urine Culture shows NO growth F/U Mycoplasma IgG, IgM F/U Urine Strep Ag Urine Legionella is negative Rapid Influenza is negative Status: Acute 2). 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 Hilton Status: Acute 3). Right Shoulder Dislocation/Right Humerus Fracture Reduced in ER at the time of admission Right Shoulder CT 07/17/17 shows communuted displaced greater tuberosity fracture , successful closed reduction of anterior glenohumeral dislocation Due to RLL Pneumonia, patient is not cleared for surgery requiring general anesthesia. She will need to complete antibiotic course and then follow up with Dr. Cai in his office to schedule surgery. She will need to keep right shoulder immobilizer on at all times Orthopedics Dr. Cai Status: Acute 4). Tongue Laceration Secondary to the seizure Lidocaine 2% Viscous 15 ml PO Swish and Spit ACHS Status: Acute 5). Prohylaxis Lovenox 40 mg SC 1x/day Protonix 40 mg IV 1x/day Florastor 250 mg PO 2x/day Regular Diet Status: Acute HgB/Hct dropped (secondary to the Lovenox? which was discontinued 07/18/17) and LFTs elevated (could be secondary to the Ceftriaxone which was discontinued 07/18). Repeat blood work morning of 07/21/27 and if stable will discharge at that time. Gómez Dash D.O.
[2017-07-19] MEDS: Saccharomyces Boulardi 250 mg Cap PO SCH ×2 (09:10→17:04)
[2017-07-19] MEDS: Enoxaparin 40 mg Syringe SC SCH (09:10)
[2017-07-19] MEDS: Azithromycin 500 MG in Sodium Chloride 0.9% 250 ML IVPB SCH (09:11)
--- NOTE | 2017-07-19 18:18 | CP.CCUPN ---
CCU Objective - Vital Signs / Intake & Output Vital Signs (Last 4 hours): Vital Signs Temp Pulse Resp BP Pulse Ox 07/19/17 16:00 98.4 F 75 18 114/76 100 Intake and Output (Last 8hrs): Intake & Output 07/19/17 07/19/17 07/19/17 06:59 14:59 22:59 Intake Total 100 2200 Output Total 600 Balance 100 1600 Intake: Intake, IV Amount 100 1600 Left Hand 100 100 Left Upper arm 1500 Oral 600 Output: Urine 600 Urine, Voided 600 Other: # Bowel Movements 0 - Physical Exam Head: Positive for: Atraumatic, Normocephalic Pupils: Positive for: PERRL Extroacular Muscles: Positive for: EOMI Conjunctiva: Positive for: Normal Mouth: Positive for: Moist Mucous Membranes Neck: Positive for: Normal Range of Motion Respiratory/Chest: Positive for: Clear to Auscultation, Good Air Exchange. Negative for: Respiratory Distress, Accessory Muscle Use Cardiovascular: Positive for: Regular Rate and Rhythm, Normal S1, S2. Negative for: Murmurs Abdomen: Positive for: Normal Bowel Sounds. Negative for: Tenderness, Distention, Peritoneal Signs Upper Extremity: Positive for: NORMAL PULSES, Tenderness (Right shoulder), Swelling Lower Extremity: Positive for: Normal Inspection Neurological: Positive for: GCS=15, CN II-XII Intact, Speech Normal Skin: Positive for: Warm, Dry, Normal Color Psychiatric: Positive for: Alert, Oriented x 3 - Medications Active Medications: Active Medications Generic Name Dose Route Start Last Admin Trade Name Freq PRN Reason Stop Dose Admin Enoxaparin Sodium 40 mg 07/16/17 10:00 07/19/17 09:10 Lovenox SC 40 mg DAILY [facility] Administration Azithromycin 500 mg/ Sodium 250 mls @ 250 mls/hr 07/16/17 10:00 07/19/17 09: 11 Chloride IVPB 250 mls/hr DAILY [facility] Administration Protocol Piperacillin Sod/Tazobactam Sod 3.375 gm in 50 mls @ 200 mls/hr 07/17/17 18: 00 07/19/17 17:04 Zosyn 3.375 Gm Iv Premix IVPB 200 mls/hr Q6H [facility] Administration Protocol Levetiracetam 750 mg 07/18/17 09:45 07/19/17 09:10 Keppra PO 750 mg Q12H [facility] Administration Morphine Sulfate 2 mg 07/18/17 21:45 07/18/17 21:48 Morphine IVP 2 mg Q4 PRN Administration Pain, moderate (4-7) Saccharomyces Boulardii 250 mg 07/17/17 18:00 07/19/17 17:04 Florastor PO 250 mg BID [facility] Administration - Patient Studies Lab Studies: Microbiology Studies 07/16/17 Unknown Blood Culture - Preliminary Blood-Venous NO GROWTH AFTER 48 HOURS 07/16/17 04:30 Blood Culture - Preliminary Blood-Venous NO GROWTH AFTER 48 HOURS Lab Studies 07/19/17 07/19/17 Range/Units 06:15 06:14 WBC 6.3 (4.8-10.8) K/uL RBC 3.05 L (3.80-5.20) Mil/uL Hgb 9.1 L D (11.0-16.0) g/dL Hct 26.8 L (34.0-47.0) % MCV 87.8 (81.0-99.0) fL MCH 29.7 (27.0-31.0) pg MCHC 33.9 (33.0-37.0) g/dL RDW 14.0 (11.5-14.5) % Plt Count 183 (130-400) K/uL MPV 9.4 (7.2-11.7) fL Neut % (Auto) 67.5 (50.0-75.0) % Lymph % (Auto) 23.2 (20.0-40.0) % [place] % (Auto) 6.5 (0.0-10.0) % Eos % (Auto) 2.3 (0.0-4.0) % Baso % (Auto) 0.5 (0.0-2.0) % Neut # (Auto) 4.2 (1.8-7.0) K/uL Lymph # (Auto) 1.5 (1.0-4.3) K/uL [place] # (Auto) 0.4 (0.0-0.8) K/uL Eos # (Auto) 0.1 (0.0-0.7) K/uL Baso # (Auto) 0.0 (0.0-0.2) K/uL Sodium 139 (132-148) mmol/L Potassium 4.4 (3.6-5.2) mmol/L Chloride 102 (98-107) mmol/L Carbon Dioxide 26 (22-30) mmol/L Anion Gap 16 (10-20) BUN 6 L (7-17) mg/dL Creatinine 0.7 (0.7-1.2) mg/dL Est GFR ( Amer) > 60 Est GFR (Non-Af Amer) > 60 Random Glucose 85 (65-105) mg/dL Calcium 8.8 (8.6-10.4) mg/dl Total Bilirubin 1.5 H (0.2-1.3) mg/dL AST 102 H (14-36) U/L ALT 43 (9-52) U/L Alkaline Phosphatase 63 (38-126) U/L Total Protein 7.7 (6.3-8.3) g/dL Albumin 3.8 (3.5-5.0) g/dL Globulin 3.9 (2.2-3.9) gm/dL Albumin/Globulin Ratio 1.0 (1.0-2.1) Laboratory Results - last 24 hr 07/19/17 07/19/17 06:14 06:15 WBC 6.3 RBC 3.05 L Hgb 9.1 L D Hct 26.8 L MCV 87.8 MCH 29.7 MCHC 33.9 RDW 14.0 Plt Count 183 MPV 9.4 Neut % (Auto) 67.5 Lymph % (Auto) 23.2 [place] % (Auto) 6.5 Eos % (Auto) 2.3 Baso % (Auto) 0.5 Neut # (Auto) 4.2 Lymph # (Auto) 1.5 [place] # (Auto) 0.4 Eos # (Auto) 0.1 Baso # (Auto) 0.0 Sodium 139 Potassium 4.4 Chloride 102 Carbon Dioxide 26 Anion Gap 16 BUN 6 L Creatinine 0.7 Est GFR ( Amer) > 60 Est GFR (Non-Af Amer) > 60 Random Glucose 85 Calcium 8.8 Total Bilirubin 1.5 H AST 102 H ALT 43 Alkaline Phosphatase 63 Total Protein 7.7 Albumin 3.8 Globulin 3.9 Albumin/Globulin Ratio 1.0 Fingerstick Blood Sugar Results: 215 Critical Care Progress Note - Nutrition Nutrition: Nutrition Category Date Time Status Regular Diet [DIET] Diets 07/16/17 Breakfast Active
[2017-07-19] MEDS: Morphine 4 MG/ML VIAL IVP PRN (21:45)
[2017-07-20 04:14] VITALS: BP 102/62; O2SAT 100
[2017-07-20] MEDS: Piperacill/Tazo 3.375gm in Dex 3.375 GM/50 ML BAG IVPB SCH (05:50)
[2017-07-20] MEDS: Morphine 4 MG/ML VIAL IVP PRN (06:19)
[2017-07-20 06:55] LABS: ALB/GLOB RATIO 1.1 (1.0-2.1); ALBUMIN 3.9 g/dL (3.5-5.0); ALT/SGPT 55 U/L (9-52); AST/SGOT 116 U/L (14-36); BLOOD UREA NITROGEN 8 mg/dL (7-17); CALCIUM 9.1 mg/dl (8.6-10.4); GFR AFRICAN-AMERICAN > 60; GFR NON-AFRICAN AMERICAN > 60
[2017-07-20 06:56] LABS: BASO # 0.1 K/uL (0.0-0.2); BASO % 0.7 % (0.0-2.0); EOS # 0.2 K/uL (0.0-0.7); EOS % 2.4 % (0.0-4.0); HEMOGLOBIN 12.2 g/dL (11.0-16.0); LYMPH # 1.8 K/uL (1.0-4.3); LYMPH % 23.1 % (20.0-40.0); MEAN CORPUSCULAR HEMOGLOBIN 29.6 pg (27.0-31.0); MEAN CORPUSCULAR HGB CONC 33.6 g/dL (33.0-37.0); MEAN PLATELET VOLUME 9.5 fL (7.2-11.7); MONO # 0.5 K/uL (0.0-0.8); MONO % 5.9 % (0.0-10.0); NEUT # 5.4 K/uL (1.8-7.0); NEUT % 67.9 % (50.0-75.0); NRBC % 0.1 % (0.0-2.0); RBC 4.13 Mil/uL (3.80-5.20); RED CELL DISTRIBUTION WIDTH 14.1 % (11.5-14.5); WHITE BLOOD COUNT 7.9 K/uL (4.8-10.8)
--- NOTE | 2017-07-20 07:06 | CP.PCM.PN ---
Subjective - Date & Time of Evaluation Date of Evaluation: 07/20/17 Time of Evaluation: 07:06 - Subjective Subjective: Ms. Celis was seen and examined at the bedside at the bedside in ICU. She is alert, oriented in all spheres. She denies any headache, dizziness, lightheadedness, blurred vision, diplopia, or any seizure-like activity. She is able to follow simple commands with right arm with minimal movement due to fracture and left arm due to swelling. She is able to move bilateral lower extremities spontaneously. CTA of the head and neck showed normal CTA with no evidence of occlusion, definite significant stenosis, or saccular aneurysm. There was no untoward events overnight Objective - Vital Signs/Intake and Output Vital Signs (last 24 hours): Temp Pulse Resp BP Pulse Ox 97.9 F 80 18 102/62 100 07/20/17 04:00 07/20/17 04:00 07/20/17 04:00 07/20/17 04:00 07/20/17 04:00 Intake and Output: 07/20/17 07/20/17 06:59 18:59 Intake Total 100 Output Total 600 Balance -500 - Medications Medications: Current Medications Enoxaparin Sodium (Lovenox) 40 mg SC DAILY [facility] Last Admin: 07/19/17 09:10 Dose: 40 mg Azithromycin 500 mg/ Sodium (Chloride) 250 mls @ 250 mls/hr IVPB DAILY [facility] PRN Reason: Protocol Last Admin: 07/19/17 09:11 Dose: 250 mls/hr Piperacillin Sod/Tazobactam Sod (Zosyn 3.375 Gm Iv Premix) 3.375 gm in 50 mls @ 200 mls/hr IVPB Q6H [facility] PRN Reason: Protocol Last Admin: 07/20/17 05:50 Dose: 200 mls/hr Levetiracetam (Keppra) 750 mg PO Q12H [facility] Last Admin: 07/19/17 21:45 Dose: 750 mg Morphine Sulfate (Morphine) 2 mg IVP Q4 PRN PRN Reason: Pain, moderate (4-7) Last Admin: 07/20/17 06:19 Dose: 2 mg Saccharomyces Boulardii (Florastor) 250 mg PO BID [facility] Last Admin: 07/19/17 17:04 Dose: 250 mg - Labs Labs: 07/20/17 06:32 07/20/17 06:31 - Constitutional Appears: No Acute Distress - Head Exam Head Exam: NORMAL INSPECTION - Neurological Exam Neurological Exam: Alert, Awake, Oriented x3 Neuro motor strength exam: Left Upper Extremity: 4, Right Upper Extremity: 2/1, Left Lower Extremity: 5, Right Lower Extremity: 5 Additional comments: Neurological unchanged from previous examination. Assessment and Plan (1) Seizures Assessment & Plan: Case discussed with Dr. Jorgensen, continue all current medical regimen. Recommend to treat any underlying electrolyte abnormalities including liver enzymes. Pending EEG. If patient will be discharge, to follow up with Dr. Jorgensen at [address] [place] [address]. [address] [facility] [address], tel. # [phone]. Status: Acute
[2017-07-20 08:57] LABS: HEPATITIS B SURFACE AG Negative (NEGATIVE)
[2017-07-20 09:02] LABS: HEPATITIS A IGM NEGATIVE (NEGATIVE); HEPATITIS B CORE AB NEGATIVE (NEGATIVE)
[2017-07-20 09:14] LABS: HEPATITIS C ANTIBODY NEGATIVE (NEGATIVE)
--- NOTE | 2017-07-20 09:57 | CP.PCM.DIS ---
Provider - Provider Date of Admission: 07/16/17 05:52 Attending physician: Roberth Siu MD Primary care physician: None Consults: Neurology Dr. Jorgensen Orthopedics Dr. Cai Time Spent in preparation of Discharge (in minutes): 40 Hospital Course - Lab Results Lab Results: Micro Results 07/16/17 Unknown Blood-Venous Blood Culture - Preliminary NO GROWTH AFTER 3 DAYS 07/16/17 04:30 Blood-Venous Blood Culture - Preliminary NO GROWTH AFTER 3 DAYS 07/16/17 08:00 Urine,Clean Catch Urine Culture - Final No Growth (<1,000 CFU/ML) 07/16/17 06:49 Nose MRSA Culture (Admit) - Final MRSA NOT DETECTED Most Recent Lab Values WBC 7.9 K/uL (4.8-10.8) 07/20/17 06:32 RBC 4.13 Mil/uL (3.80-5.20) 07/20/17 06:32 Hgb 12.2 g/dL (11.0-16.0) D 07/20/17 06:32 Hct 36.3 % (34.0-47.0) 07/20/17 06:32 MCV 88.0 fL (81.0-99.0) 07/20/17 06:32 MCH 29.6 pg (27.0-31.0) 07/20/17 06:32 MCHC 33.6 g/dL (33.0-37.0) 07/20/17 06:32 RDW 14.1 % (11.5-14.5) 07/20/17 06:32 Plt Count 213 K/uL (130-400) 07/20/17 06:32 MPV 9.5 fL (7.2-11.7) 07/20/17 06:32 Neut % (Auto) 67.9 % (50.0-75.0) 07/20/17 06:32 Lymph % (Auto) 23.1 % (20.0-40.0) 07/20/17 06:32 [place] % (Auto) 5.9 % (0.0-10.0) 07/20/17 06:32 Eos % (Auto) 2.4 % (0.0-4.0) 07/20/17 06:32 Baso % (Auto) 0.7 % (0.0-2.0) 07/20/17 06:32 Neut # (Auto) 5.4 K/uL (1.8-7.0) 07/20/17 06:32 Lymph # (Auto) 1.8 K/uL (1.0-4.3) 07/20/17 06:32 [place] # (Auto) 0.5 K/uL (0.0-0.8) 07/20/17 06:32 Eos # (Auto) 0.2 K/uL (0.0-0.7) 07/20/17 06:32 Baso # (Auto) 0.1 K/uL (0.0-0.2) 07/20/17 06:32 Puncture Site Lr 07/16/17 04:50 pCO2 33 mm/Hg (35-45) L 07/16/17 04:50 pO2 277 mm/Hg (80-100) H 07/16/17 04:50 HCO3 14.3 mmol/L (21-28) L 07/16/17 04:50 ABG pH 7.21 (7.35-7.45) L 07/16/17 04:50 ABG Total CO2 14.2 mmol/L (22-28) L 07/16/17 04:50 ABG O2 Saturation 99.5 % (95-98) H 07/16/17 04:50 ABG Base Excess -13.6 mmol/L (-2.0-3.0) L 07/16/17 04:50 ABG Hemoglobin 10.0 g/dL (11.7-17.4) L 07/16/17 04:50 ABG Carboxyhemoglobin 1.1 % (0.5-1.5) 07/16/17 04:50 POC ABG HHb (Measured) 0.5 % (0.0-5.0) 07/16/17 04:50 ABG Methemoglobin 0.8 % (0.0-3.0) 07/16/17 04:50 Nathan Test Pos 07/16/17 04:50 A-a O2 Difference 395.0 mm/Hg 07/16/17 04:50 Respiratory Index 1.4 07/16/17 04:50 Hgb O2 Saturation 97.6 % (95.0-98.0) 07/16/17 04:50 Liter Flow 15.0 07/16/17 04:50 FiO2 100.0 % 07/16/17 04:50 Sodium 140 mmol/L (132-148) 07/20/17 06:31 Potassium 4.0 mmol/L (3.6-5.2) 07/20/17 06:31 Chloride 104 mmol/L (98-107) 07/20/17 06:31 Carbon Dioxide 23 mmol/L (22-30) 07/20/17 06:31 Anion Gap 17 (10-20) 07/20/17 06:31 BUN 8 mg/dL (7-17) 07/20/17 06:31 Creatinine 0.7 mg/dL (0.7-1.2) 07/20/17 06:31 Est GFR ( Amer) > 60 07/20/17 06:31 Est GFR (Non-Af Amer) > 60 07/20/17 06:31 Random Glucose 88 mg/dL (65-105) 07/20/17 06:31 Serum Osmolality 292 mosm/kg (272-300) 07/16/17 08:09 Lactic Acid 1.9 mmol/L (0.7-2.1) 07/16/17 15:36 Calcium 9.1 mg/dl (8.6-10.4) 07/20/17 06:31 Phosphorus 3.5 mg/dL (2.5-4.5) 07/18/17 06:17 Magnesium 2.0 mg/dL (1.6-2.3) 07/18/17 06:17 Total Bilirubin 1.1 mg/dL (0.2-1.3) 07/20/17 06:31 AST 116 U/L (14-36) H 07/20/17 06:31 ALT 55 U/L (9-52) H D 07/20/17 06:31 Alkaline Phosphatase 76 U/L (38-126) 07/20/17 06:31 Total Protein 7.6 g/dL (6.3-8.3) 07/20/17 06:31 Albumin 3.9 g/dL (3.5-5.0) 07/20/17 06:31 Globulin 3.7 gm/dL (2.2-3.9) 07/20/17 06:31 Albumin/Globulin Ratio 1.1 (1.0-2.1) 07/20/17 06:31 Urine Color Straw (YELLOW) 07/16/17 02:59 Urine Clarity Clear (Clear) 07/16/17 02:59 Urine pH 5.0 (5.0-8.0) 07/16/17 02:59 Ur Specific [place] 1.015 (1.003-1.030) 07/16/17 02:59 Urine Protein 2+ mg/dL (NEGATIVE) H 07/16/17 02:59 Urine Glucose (UA) 1+ mg/dL (Normal) 07/16/17 02:59 Urine Ketones Negative mg/dL (NEGATIVE) 07/16/17 02:59 Urine Blood 2+ (NEGATIVE) H 07/16/17 02:59 Urine Nitrate Negative (NEGATIVE) 07/16/17 02:59 Urine Bilirubin Negative (NEGATIVE) 07/16/17 02:59 Urine Urobilinogen Normal mg/dL (0.2-1.0) 07/16/17 02:59 Ur Leukocyte Esterase Neg Tasha/uL (Negative) 07/16/17 02:59 Urine WBC (Auto) 1 /hpf (0-5) 07/16/17 02:59 Urine RBC (Auto) 15 /hpf (0-3) H 07/16/17 02:59 Urine Bacteria Rare (<OCC) 07/16/17 02:59 Granular Casts (Auto) 7 /lpf (0-1) 07/16/17 02:59 Urine Osmolality 403 mosm/kg (300-1000) 07/16/17 07:57 Ur Random Creatinine 16.8 mg/dL 07/16/17 07:57 Ur Random Sodium 164 mmol/L 07/16/17 07:57 Urine HCG, Qual Negative (NEGATIVE) 07/16/17 02:59 Salicylates < 1.0 mg/dL 1 07/16/17 08:11 Urine Opiates Screen Negative (NEGATIVE) 07/17/17 15:24 Urine Methadone Screen Negative (NEGATIVE) 07/17/17 15:24 Ur Barbiturates Screen Negative (NEGATIVE) 07/17/17 15:24 Ur Phencyclidine Scrn Negative (NEGATIVE) 07/17/17 15:24 Ur Amphetamines Screen Negative (NEGATIVE) 07/17/17 15:24 U Benzodiazepines Scrn Negative (NEGATIVE) 03/22/18 15:24 U Oth Cocaine Metabols Negative (NEGATIVE) 07/17/17 15:24 U Cannabinoids Screen Negative (NEGATIVE) 07/17/17 15:24 Alcohol, Quantitative < 10 mg/dl (0-10) 07/16/17 03:16 Hepatitis A IgM Ab Negative (NEGATIVE) 07/19/17 15:03 Hep Bs Antigen Negative (NEGATIVE) 07/19/17 15:03 Hep B Core IgM Ab Negative (NEGATIVE) 07/19/17 15:03 Hepatitis C Antibody Negative (NEGATIVE) 07/19/17 15:03 HIV 1&2 Antibody Screen Negative (NEGATIVE) 07/19/17 15:03 Influenza Typ A,B (EIA) Negative for flu a/b (NEGATIVE) 07/16/17 15:56 Ur L.pneumophila Ag Negative (NEGATIVE) 07/16/17 15:51 Blood Type B NEGATIVE 07/18/17 04:00 Blood Type Confirm B NEGATIVE 07/18/17 04:00 Antibody Screen Negative 07/18/17 04:00 - Hospital Course Hospital Course: Hospitalist Discharge Note Patient was seen and examined at 9:45 AM 07/20/17 ICU Bed 18 36 year old female who was admitted morning of 07/16/17 s/p fall and was found to have Seizure, Right Shoulder Dislocation, and RLL Pneumonia. Her Right Shoulder was reduced in the emergency room and she was then admitted to the ICU for further treatment and evaluation. Please see individual Assessment and Plans below for further details: Upon ROS: Right Shoulder pain comes and goes but much better than upon presentation Right lateral tongue pain comes and goes but much better than upon presentation Moving her bowels daily and they are normal NO chest pain NO SOB/Cough/Wheezing NO abdominal pain NO n/v/d/c, NO black or bloody bowel movement NO new changes in vision/blurriness of vision/loss of vision/eye pain NO new changes in hearing/loss of hearing/tinnitus NO paresthesias NO other complaints Exam: General: AAOX3, NAD HEENT: NCA, EOMI, PERRLA, NO cervical/supraclavicular/submandibular lymphadenopathy, NO pharyngeal erythema/exudate, Nasal Turbinates are nonerythematous/nonedematous, Oral Mucosa is moist, Right Lateral Tongue Laceration and Left Lateral Tongue Laceration have scabbed over with no surrounding signs of infection Cardio: NS1 and NS2, NO M/R/G Resp: CTA B/L, Faint Bibasilar Rales on exam GI: BSx4, Soft, NT, NO HSM, NO guarding/rebound tenderness Ext: Pulses are strong and equal, Capillary Refill is 2 seconds, NO edema, Right Arm in Flexion in Sling Neuro: CN II through XII are grossly intact Assessment and Plan: 1). Sepsis Secondary to RLL Pneumonia CT Chest 07/16/17 showed evidence of RLL Azithromycin 500 mg IV 1x/day (07/16/17 through 07/20/17) Ceftriaxone 1 gm IV 1x/day (07/16/17 through 07/17/17) Zosyn 3.375 gm IV Q6H (07/18/17 through 07/20/17) Patient is being discharged on Doxycycline which she will finish by 07/25/17 Blood Culture is negative to date Urine Culture shows NO growth Urine Legionella is negative Rapid Influenza is negative Status: Acute 2). 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 Hilton: she will need to follow up with him as outpatient Status: Acute 3). Right Shoulder Dislocation/Right Humerus Fracture Reduced in ER at the time of admission Right Shoulder CT 07/17/17 shows communuted displaced greater tuberosity fracture , successful closed reduction of anterior glenohumeral dislocation Due to RLL Pneumonia, patient is not cleared for surgery requiring general anesthesia. She will need to complete a total of 10 days of antibiotic course and then follow up with Dr. Cai in his office to schedule surgery. She will need to keep right shoulder immobilizer on at all times Orthopedics Dr. Cai: she will need to follow up with him as outpatient after she has completed a total of 10 days of antibiotics for the RLL Pneumonia Status: Acute 4). Tongue Laceration Secondary to the seizure Lidocaine 2% Viscous 15 ml PO Swish and Spit ACHS. This has helped her and the lacerations have scabbed over therefore this medication is discontinued upon discharge Status: Acute 5). Elevated LFTs Hepatitis Panel and HIV are negative Could be secondary to the Azithromycin, Ceftriaxone, and/or Keppra Plan is to continue the Keppra for now and repeat the LFTs as outpatient at the end of this week and if still elevated then Neurology will have to consider alternate antiseizure medications such as Vimpat 6). Prohylaxis That She Received Lovenox 40 mg SC 1x/day Protonix 40 mg IV 1x/day Florastor 250 mg PO 2x/day which she will have to continue through 08/25/17 as an outpatient Regular Diet Patient explained to me that she does have [employer] health insurance She has requested antacid medications (revealed today that she has been experiencing substernal burning for the past 2 to 3 years) The patient is stable for discharge. The following instructions were explained to patient and a copy will need to be provided to her upon discharge: 1). You do NOT have a primary care physician. Therefore please call the office of Dr. Zainab Lazcano [phone] on 07/21/17 morning to schedule an appointment with him before the end of this week. His office is located at [address] [place] [address] in [place], [place] and the Suite number for his office is [phone]. Bring this discharge summary with you for his review. You will need to have your blood drawn for liver enzymes to make sure that they are coming down. Dr. Lazcano will help to coordinate your health care and provide you with future prescriptions. 2). Schedule follow up with Neurologist Dr. Sammy Jorgensen by calling his office at [phone] on 07/21/17. Schedule your appointment with him on the same day as with Dr. Zainab Lazcano as Dr. Jorgensen's office is also located at [address] [place] [address] in [place], [place] and the Suite number for his office is [phone]. Please bring this discharge summary with you for Dr. Jorgensen's review. You may need to have your anti-seizure medication changed if the liver enzymes are not coming down. 3). Schedule follow up with Orthopedic Surgeon Dr. Omar Cai by calling his office at [phone] on 07/21/17. This appointment should take place by the end of the week. He will schedule surgery for you to repair the broken right should bone after you have completed your antibiotic. 4). The following prescriptions were given to you for you to fill at your pharmacy on your way home from the hospital. Please use as directed: Doxycycline 100 mg, 2 tablets by mouth 2x/day (breakfast and dinner) from through 07/22/17) then 1 tablet by mouth 2x/day (breakfast and dinner) from through 07/25/17, Dispense #18, No refills Keppra 750 mg, 1 tablet by mouth 2x/day (breakfast and dinner), Dispense #60, NO refills Florastor 250 mg, 1 tablet by mouth 2x/day (2 hours after breakfast and 2 hours after dinner) through 08/25/17, Dispense #74, NO refills Omprazole 20 mg, 1 tablet by mouth 1x/day (breakfast), Dispense #30, NO refills 5). You must keep the Right Shoulder brace on at all times until further instructed by Orthopedic Surgeon Dr. Cai. 6). You may use Tylenol 500 mg, 1 tablet by mouth every 6 hours as needed for pain. 7). Please remain well hydrated with water. 8). Please take care and be well. Gómez Dash D.O. Discharge Exam - Head Exam Head Exam: NORMAL INSPECTION Discharge Plan - Follow Up Plan Condition: SERIOUS Disposition: HOME/ ROUTINE
[2017-07-20] MEDS: Saccharomyces Boulardi 250 mg Cap PO SCH (10:00)
[2017-07-20] MEDS: Azithromycin 500 MG in Sodium Chloride 0.9% 250 ML IVPB SCH (10:01)
[2017-07-20 12:40] VITALS: PULSE 78
[2017-07-20 12:41] VITALS: TEMP 98.2
--- NOTE | 2017-07-21 11:19 | PCM.EEG ---
Electroencephalogram Report - Electroencephalogram Report Procedure Date: 07/17/17 Interpretation: Normal awake and sleep eeg no seizures. Impression: normal
== END 2017-07-20 12:30 | disposition home or self-care (01) | DRG 871 ==
LOC: C.ER 02:31 → C.9I 05:52 → EDBD 05:52 → C.9I 07-17 09:00
PROVIDERS: ADMIT Internal Medicine; ATTEND Internal Medicine
PROC: 0RSJXZZ Reposition Right Shoulder Joint, External Approach (ICD-10-PCS; principal; 2017-07-16)
DX: A41.9 Sepsis, unspecified organism (principal); J69.0 Pneumonitis due to inhalation of food and vomit; E87.2 Acidosis; E87.1 Hypo-osmolality and hyponatremia; S01.512A Laceration without foreign body of oral cavity, initial encounter; S42.251A Displaced fracture of greater tuberosity of right humerus, initial encounter for closed fracture; G40.209 Localization-related (focal) (partial) symptomatic epilepsy and epileptic syndromes with complex partial seizures, not intractable, without status epilepticus; R65.20 Severe sepsis without septic shock; S43.014A Anterior dislocation of right humerus, initial encounter; W01.0XXA Fall on same level from slipping, tripping and stumbling without subsequent striking against object, initial encounter; T36.1X5A Adverse effect of cephalosporins and other beta-lactam antibiotics, initial encounter; R79.89 Other specified abnormal findings of blood chemistry